=== PATIENT | female | born 1950 | race Caucasian/White ===

== ENCOUNTER → 2016-08-12 | Outpatient (CLI) | payer BC ==
[~2016-08-12] MED LIST: AGM875 PO; ALL180 PO; BNC/20125 PO; CLR/5 PO; DILT-117 PO; EZET10TA41 PO
[2016-08-12 11:31] LABS: BASO % 0.7 %; BASO ABS # 0.05 K/uL (0-0.2); COMPLETE YES; EOS % 2.8 %; HEMATOCRIT 41.6 % (37-47); IG% 0.3 %; LYMPH % 33.9 %; LYMPH ABS # 2.52 K/uL (1.2-3.4); MEAN CELL VOLUME 90.6 fL (80-100); MEAN CORPUSCULAR HEMOGLOBIN 30.7 pg (25-34); MEAN CORPUSCULAR HGB CONC 33.9 g/dl (32-36); MEAN PLATELET VOLUME 8.8 fL (7.4-10.4); MONO % 8.2 %; NEUT % 54.1 %; PLATELET COUNT 215 K/uL (130-400); RED BLOOD COUNT 4.59 M/uL (4.2-5.4); WHITE BLOOD COUNT 7.43 K/uL (4.8-10.8)
[2016-08-12 12:58] LABS: ALT/SGPT 42 U/L (12-78); BLOOD UREA NITROGEN 26 mg/dl (7-18); BUN/CREATININE RATIO 27.7 (10-20); CALCIUM 9.5 mg/dl (8.5-10.1); CARBON DIOXIDE 28 mmol/L (21-32); CHLORIDE 105 mmol/L (98-107); CHOLESTEROL 139 mg/dl (0-200); CREATININE 0.92 mg/dl (0.60-1.20); GLUCOSE 93 mg/dl (70-99); POTASSIUM 3.5 mmol/L (3.5-5.1); SODIUM 143 mmol/L (136-145); TRIGLYCERIDES 101 mg/dl (0-150); VERY LOW DENSITY LIPOPROT CALC 20 mg/dl
[2016-08-12 13:14] LABS: ALB/GLOB RATIO 1.2 (0.9-2); ALKALINE PHOSPHATASE 43 U/L (45-117); AST/SGOT 27 U/L (15-37); CHOLESTEROL/HDL RATIO 2.3; HDL CHOLESTEROL 61 mg/dl; LDL CHOLESTEROL CALCULATED 58 mg/dl
== END | disposition home or self-care (01) ==
LOC: C.LAB1850 10:31
PROVIDERS: ATTEND Internal Medicine
DX: Z11.59 Encounter for screening for other viral diseases (principal); E55.9 Vitamin D deficiency, unspecified; E78.5 Hyperlipidemia, unspecified; I10 Essential (primary) hypertension

== ENCOUNTER → 2017-01-25 | Day surgery (SDC) | payer BC ==
[2017-01-11 11:35] VITALS: Ht 162.6 cm; Wt 81.8 kg
[~2017-01-25] VITALS: Ht 162.6 cm; Wt 81.8 kg
[~2017-01-25] MED LIST changes: +500ML BSS 0.3ML EPI 1:1000PF IRRIG ONE; +ACETAMINOPHEN 325 MG TAB PO PRN; -AGM875 PO; -ALL180 PO; +AMVISC PLUS 0.8ML SYRINGE INT OCU ONE; +ATROPINE SULFATE 0.1 MG/ML 5ML SYR IV PRN; +AcetaZOLAMIDE 250 MG TAB PO SCH; +BETAXOLOL HCL 0.25% OP SUSP PER DROP CHARGE OPR SCH; +BRIMONIDINE TART 0.2% OP SOLN PER DROP CHARGE ONE; +BSS FLUSH ONE; +ENDOCOAT 0.85ML SYRINGE INT OCU ONE; +EpHEDrine SULFATE INJ 50 MG/ML AMP IV PRN; +EpINEphrine INJ 1MG/ML AMP 1 MG/ML AMP ONE; +LACTATED RINGER'S 1000ML 500 ML IV SCH; +LIDOCAINE 4% OP SOLN DROP CHARGE ONE; +LIDOCAINE 4% OP SOLN DROP CHARGE OPR SCH; +LIDOCAINE HCL 1% MPF 2 ML VIAL ONE; +MIDAZOLAM HCL 1 MG/ML 2ML VIAL ONE; +MIX: 4ML BSS 1ML EPI 1:1000 PF INSTIL ONE; +MOXIFLOXACIN OPH SOLN PER DROP CHARGE ONE; +OCUCOAT 1 ML SOLN IO ONE; +POVIDONE-IODINE OP SOLN 30 ML BTL ONE; +PROPARACAINE 0.5% OP SOLN PER DROP CHARGE OPR SCH; +TOBRAMYCIN/DEXAMETHASONE OPH OINT PER APPLN CHARGE ONE
[2017-01-25] MEDS: PHENYLEPHRINE HCL 2.5% OP SOLN PER DROP CHARGE OPR SCH ×2 (09:15→09:20)
--- NOTE | 2017-01-25 09:15 | History & Physical Bridge - [place] ---
H&P Re-Evaluation Bridge Note: I have examined the patient, reviewed the History & Physical and in the interval since the performance of the History & Physical I have noted the following changes of clinical significance: No changes noted
[2017-01-25] MEDS: TROPICAMIDE 1% OP SOLN PER DROP CHARGE OPR SCH ×2 (09:16→09:21)
[2017-01-25] MEDS: CYCLOPENTOLATE HCL 1% OP SOLN PER DROP CHARGE OPR SCH ×2 (09:17→09:22)
[2017-01-25] MEDS: MOXIFLOXACIN OPH SOLN PER DROP CHARGE OPR SCH ×2 (09:18→09:28)
--- NOTE | 2017-01-25 10:31 | Discharge Instructions-SurgCtr ---
Discharge Instructions Date of Service Jan 25, 2017. Visit Reason for Visit: Right Cataract Discharge Discharge Diagnosis / Problem: lens implant right eye Discharge Goals Goal(s): Improve function Activity Recommendations Activity Limitations: resume your previous activity Lifting Limitations: no more than 10 pounds Exercise/Sports Limitations: gradually increase as tolerated May Resume Sexual Activity: when tolerated Shower/Bathe: tomorrow Driving or Machine Use: resume 1 day after discharge Anesthesia . Post Anesthesia Instructions: If you have had General Anesthesia or IV Sedation: * Do not drive today. * Resume driving when surgeon permits. * Do not make important decisions or sign legal documents today. * Call surgeon for: 1. Temperature elevations greater than 101 degrees F. 2. Uncontrollable pain. 3. Excessive bleeding. 4. Persistent nausea and vomiting. 5. Medication intolerance (nausea, vomiting or rash). * For nausea and vomiting use only clear liquids such as: tea, soda, bouillon until nausea subsides, then gradually increase diet as tolerated. * If you have any concerns or questions, call your surgeon's office. If physician is unavailable and it is an emergency, call 911 or go to the nearest emergency room. . Instructions / Follow-Up Instructions / Follow-Up ACTIVITY RECOMMENDATIONS: * Light activities. * Mild irritation and blurred vision are common for the first few days. * You may walk outside, read, watch television. * Redness around the white part of the eye is common. MEDICATIONS: Resume previous medications unless instructed otherwise by your surgeon. * Take white Diamox (Acetazolamide) tablet at 1 pm today. Start all eye drops at 1 pm today: * Eye drops (today and tomorrow): Durezol - one drop in operative eye every 3 hours while awake Ofloxacin - one drop in operative eye every 3 hours while awake SPECIAL CARE INSTRUCTIONS: * Tape plastic shield over eye to sleep at night. Call your doctor at with any concerns or problems. FOLLOW UP VISIT: Follow-up with Dr Sargent at [place] office as scheduled. Diet Recommendations Home Diet: no limitations Procedures Procedures Performed: cataract extraction with lens implant Pending Studies Studies pending at discharge: no Medical Emergencies . Who to Call and When: Medical Emergencies: If at any time you feel your situation is an emergency, please call 911 immediately. . Non-Emergent Contact Non-Emergency issues call your: Scientologist Call Non-Emergent contact if: your pain is not controlled [phone] . . "Provider Documentation" section prepared by Garry Sargent. .
--- NOTE | 2017-01-25 10:33 | [facility] Operative Report ---
Operative Report Date of Service Jan 25, 2017. Operative Report 1. PREOPERATIVE DIAGNOSIS: Senile Posterior Subcapsular cataract, right eye. 2. POSTOPERATIVE DIAGNOSIS: Senile Posterior Subcapsular cataract, right eye. 3. PROCEDURE: Phacoemulsification of right cataract with posterior chamber lens implant, type Bausch [employer] Lomb, model MI60L, power +23.5 diopters. ANESTHESIA: Local standby. SURGEON: Dr. Sargent. COMPLICATIONS: None. OPERATING TIME: 10 minutes. 4. OPERATION AND FINDINGS: DESCRIPTION OF PROCEDURE: The right pupil was dilated. The anesthetic was administered using a topical technique. The right eye was prepped and draped. A speculum was placed. A clear corneal incision was formed. The chamber was filled with Amvisc Plus and Endocoat. Epinephrine solution was used. A paracentesis was placed. A capsulorrhexis was performed. The nucleus was hydrodissected. The lens was removed with phacoemulsification. Time was 3.37 seconds. The aspiration unit was used to remove the cortex. The capsule was filled with Amvisc Plus. The lens implant was folded and placed into the capsule. The incision was hydrated. The Amvisc was aspirated. The wound was secure. The chamber was deep. The pupil was round. Brimonidine, TobraDex ointment and Vigamox solution were placed. The speculum was removed. The patient was returned to the Recovery Room in stable condition. I attest to the content of the Intraoperative Record and any orders documented therein. Any exceptions are noted below. The scribe's documentation has been prepared in my presence, under my direction and personally reviewed by me in its entirety. I confirm that the note above accurately reflects all work, treatment, procedures, and medical decision making performed by me. I personally scribed for Garry Sargent M.D. ([email or web address]) on 01/25/17 at 10:32. Electronically submitted by Aury CARROLL).
[2017-01-25 10:37] VITALS: TEMP 36.6
--- NOTE | 2017-01-25 10:50 | Anesthesia Progress Nt - [facility] ---
Anesthesia Post Op Note Date & Time Jan 25, 2017 at 10:50 Vital Signs Pain Intensity: 0 Vital Signs Past 12 Hours Date Time Temp Pulse Resp B/P (MAP) Pulse Ox O2 Delivery O2 Flow Rate FiO2 01/25/17 10:37 36.6 62 16 125/84 (98) 94 Room Air 01/25/17 09:06 37 64 16 122/76 (91) 94 Room Air Notes Mental Status: alert / awake / arousable, participated in evaluation Pt Amnestic to Procedure: Yes Nausea / Vomiting: adequately controlled Pain: adequately controlled Airway Patency, RR, SpO2: stable & adequate BP & HR: stable & adequate Hydration State: stable & adequate Anesthetic Complications: no major complications apparent
[2017-01-25 10:56] VITALS: BP 108/66; PULSE 63; O2SAT 95
== END | disposition home or self-care (01) ==
LOC: X.SURG 08:23
PROVIDERS: ATTEND Specialist
DX: H25.11 Age-related nuclear cataract, right eye (principal); I10 Essential (primary) hypertension; Z79.899 Other long term (current) drug therapy

== ENCOUNTER → 2017-02-08 | Day surgery (SDC) | payer BC ==
[2017-02-06 09:59] VITALS: Ht 162.6 cm; Wt 81.8 kg
[~2017-02-08] VITALS: Ht 162.6 cm; Wt 81.8 kg
[~2017-02-08] MED LIST changes: +BETAXOLOL HCL 0.25% OP SUSP PER DROP CHARGE OPL SCH; -BETAXOLOL HCL 0.25% OP SUSP PER DROP CHARGE OPR SCH; +LIDOCAINE 4% OP SOLN DROP CHARGE OPL SCH; -LIDOCAINE 4% OP SOLN DROP CHARGE OPR SCH; +PROPARACAINE 0.5% OP SOLN PER DROP CHARGE OPL SCH; -PROPARACAINE 0.5% OP SOLN PER DROP CHARGE OPR SCH
[2017-02-08] MEDS: PHENYLEPHRINE HCL 2.5% OP SOLN PER DROP CHARGE OPL SCH ×2 (09:37→09:42)
[2017-02-08] MEDS: TROPICAMIDE 1% OP SOLN PER DROP CHARGE OPL SCH ×2 (09:38→09:43)
[2017-02-08] MEDS: CYCLOPENTOLATE HCL 1% OP SOLN PER DROP CHARGE OPL SCH ×2 (09:39→09:44)
[2017-02-08] MEDS: MOXIFLOXACIN OPH SOLN PER DROP CHARGE OPL SCH ×2 (09:40→09:51)
--- NOTE | 2017-02-08 10:40 | Discharge Instructions-SurgCtr ---
Discharge Instructions Date of Service Feb 08, 2017. Visit Reason for Visit: Cataract Left Eye Discharge Discharge Diagnosis / Problem: lens implant left eye Discharge Goals Goal(s): Improve function Activity Recommendations Activity Limitations: resume your previous activity Lifting Limitations: no more than 10 pounds Exercise/Sports Limitations: gradually increase as tolerated May Resume Sexual Activity: when tolerated Shower/Bathe: tomorrow Driving or Machine Use: resume 1 day after discharge Anesthesia . Post Anesthesia Instructions: If you have had General Anesthesia or IV Sedation: * Do not drive today. * Resume driving when surgeon permits. * Do not make important decisions or sign legal documents today. * Call surgeon for: 1. Temperature elevations greater than 101 degrees F. 2. Uncontrollable pain. 3. Excessive bleeding. 4. Persistent nausea and vomiting. 5. Medication intolerance (nausea, vomiting or rash). * For nausea and vomiting use only clear liquids such as: tea, soda, bouillon until nausea subsides, then gradually increase diet as tolerated. * If you have any concerns or questions, call your surgeon's office. If physician is unavailable and it is an emergency, call 911 or go to the nearest emergency room. . Instructions / Follow-Up Instructions / Follow-Up ACTIVITY RECOMMENDATIONS: * Light activities. * Mild irritation and blurred vision are common for the first few days. * You may walk outside, read, watch television. * Redness around the white part of the eye is common. MEDICATIONS: Resume previous medications unless instructed otherwise by your surgeon. * Take white Diamox (Acetazolamide) tablet at 1 pm today. Start all eye drops at 1 pm today: * Eye drops (today and tomorrow): Prednisone - one drop in operative eye every 3 hours while awake Ofloxacin - one drop in operative eye every 3 hours while awake SPECIAL CARE INSTRUCTIONS: * Tape plastic shield over eye to sleep at night. Call your doctor at with any concerns or problems. FOLLOW UP VISIT: Follow-up with Dr Sargent at [place] office as scheduled. Diet Recommendations Home Diet: no limitations Procedures Procedures Performed: cataract extraction with lens implant Pending Studies Studies pending at discharge: no Medical Emergencies . Who to Call and When: Medical Emergencies: If at any time you feel your situation is an emergency, please call 911 immediately. . Non-Emergent Contact Non-Emergency issues call your: Parts Sales Advisor Call Non-Emergent contact if: your pain is not controlled [phone] . . "Provider Documentation" section prepared by Garry Sargent. .
--- NOTE | 2017-02-08 10:42 | [facility] Operative Report ---
Operative Report Date of Service Feb 08, 2017. Operative Report 1. PREOPERATIVE DIAGNOSIS: Senile Posterior Subcapsular Cataract, left eye. 2. POSTOPERATIVE DIAGNOSIS: Senile Posterior Subcapsular Cataract, left eye. 3. PROCEDURE: Phacoemulsification of left cataract with posterior chamber lens implant, type Bausch [employer] Lomb, model MI60L, power +23.5 diopters. ANESTHESIA: Local standby. SURGEON: Dr. Sargent. COMPLICATIONS: None. OPERATING TIME: 10 minutes. 4. OPERATION AND FINDINGS: DESCRIPTION OF PROCEDURE: The left pupil was dilated. The anesthetic was administered using a topical technique. The left eye was prepped and draped. A speculum was placed. A clear corneal incision was formed. The chamber was filled with Amvisc Plus and Endocoat. Epinephrine solution was used. A paracentesis was placed. A capsulorrhexis was performed. The nucleus was hydrodissected. The lens was removed with phacoemulsification. Time was 2.83 seconds. The aspiration unit was used to remove the cortex. The capsule was filled with Amvisc Plus. The lens implant was folded and placed into the capsule. The incision was hydrated. The Amvisc was aspirated. The wound was secure. The chamber was deep. The pupil was round. Brimonidine, TobraDex ointment and Vigamox solution were placed. The speculum was removed. The patient was returned to the Recovery Room in stable condition. I attest to the content of the Intraoperative Record and any orders documented therein. Any exceptions are noted below. The scribe's documentation has been prepared in my presence, under my direction and personally reviewed by me in its entirety. I confirm that the note above accurately reflects all work, treatment, procedures, and medical decision making performed by me. I personally scribed for Garry Sargent M.D. ([email or web address]) on 02/08/17 at 10:42. Electronically submitted by Aury CARROLL).
[2017-02-08 10:45] VITALS: TEMP 36.5
--- NOTE | 2017-02-08 10:59 | Anesthesia Progress Nt - [facility] ---
Anesthesia Post Op Note Date & Time Feb 08, 2017 at 10:59 Vital Signs Pain Intensity: 0 Vital Signs Past 12 Hours Date Time Temp Pulse Resp B/P (MAP) Pulse Ox O2 Delivery O2 Flow Rate FiO2 02/08/17 10:45 36.5 60 18 104/62 (76) 96 Room Air 02/08/17 09:25 37.0 64 16 138/83 (101) 95 Room Air Notes Mental Status: alert / awake / arousable, participated in evaluation Pt Amnestic to Procedure: Yes Nausea / Vomiting: adequately controlled Pain: adequately controlled Airway Patency, RR, SpO2: stable & adequate BP & HR: stable & adequate Hydration State: stable & adequate Anesthetic Complications: no major complications apparent
[2017-02-08 11:04] VITALS: BP 113/58; PULSE 57; O2SAT 95
== END | disposition home or self-care (01) ==
LOC: X.SURG 08:54
PROVIDERS: ATTEND Specialist
DX: H26.8 Other specified cataract (principal); I10 Essential (primary) hypertension; Z98.890 Other specified postprocedural states; Z98.41 Cataract extraction status, right eye; Z90.89 Acquired absence of other organs

== ENCOUNTER → 2017-03-03 | Outpatient (CLI) | payer BC ==
[~2017-03-03] MED LIST changes: -500ML BSS 0.3ML EPI 1:1000PF IRRIG ONE; -ACETAMINOPHEN 325 MG TAB PO PRN; -AMVISC PLUS 0.8ML SYRINGE INT OCU ONE; -ATROPINE SULFATE 0.1 MG/ML 5ML SYR IV PRN; -AcetaZOLAMIDE 250 MG TAB PO SCH; -BETAXOLOL HCL 0.25% OP SUSP PER DROP CHARGE OPL SCH; -BRIMONIDINE TART 0.2% OP SOLN PER DROP CHARGE ONE; -BSS FLUSH ONE; -ENDOCOAT 0.85ML SYRINGE INT OCU ONE; -EpHEDrine SULFATE INJ 50 MG/ML AMP IV PRN; -EpINEphrine INJ 1MG/ML AMP 1 MG/ML AMP ONE; -LACTATED RINGER'S 1000ML 500 ML IV SCH; -LIDOCAINE 4% OP SOLN DROP CHARGE ONE; -LIDOCAINE 4% OP SOLN DROP CHARGE OPL SCH; -LIDOCAINE HCL 1% MPF 2 ML VIAL ONE; -MIDAZOLAM HCL 1 MG/ML 2ML VIAL ONE; -MIX: 4ML BSS 1ML EPI 1:1000 PF INSTIL ONE; -MOXIFLOXACIN OPH SOLN PER DROP CHARGE ONE; -OCUCOAT 1 ML SOLN IO ONE; -POVIDONE-IODINE OP SOLN 30 ML BTL ONE; -PROPARACAINE 0.5% OP SOLN PER DROP CHARGE OPL SCH; -TOBRAMYCIN/DEXAMETHASONE OPH OINT PER APPLN CHARGE ONE
--- NOTE | 2017-03-03 12:56 | MAMMOGRAPHY REPORT ---
BILATERAL DIGITAL SCREENING MAMMOGRAM WITH CAD: 03/03/2017 CLINICAL HISTORY: Routine screening. Patient has no complaints. TECHNIQUE: Current study was also evaluated with a Computer Aided Detection (CAD) system. Bilateral CC and MLO views were obtained. COMPARISON: Comparison is made to exams dated: 03/01/2016 mammogram, 02/26/2015 mammogram, 01/06/2014 ma mmogram, 01/03/2013 mammogram, 12/30/2011 mammogram, and 12/27/2010 mammogram - [facility] nter. BREAST COMPOSITION: There are scattered areas of fibroglandular density in both breasts. FINDINGS: No suspicious masses, calcifications, or areas of architectural distortion are noted in ei ther breast. There has been no significant interval change compared to prior exams. Bilateral superi or breast asymmetries are stable compared to multiple prior exams. Bilateral benign-appearing calcif ications are also stable. Linear scar markers denote scars on bilateral breasts. IMPRESSION: ACR BI-RADS CATEGORY 2: BENIGN There is no mammographic evidence of malignancy. A 1 year screening mammogram is recommended. The pa tient will receive written notification of the results. Approximately 10% of breast cancers are not detected with mammography. A negative mammographic report should not delay biopsy if a clinically suggestive mass is present. Terri Nava M.D. /:03/03/2017 12:48:34 Road Engineer Freight: Tavia Olvera, [facility] letter sent: Normal 1/2 BI-RADS Code: ACR BI-RADS Category 2: Benign
== END | disposition home or self-care (01) ==
LOC: C.MAMM 12:19
PROVIDERS: ATTEND Internal Medicine
DX: Z12.31 Encounter for screening mammogram for malignant neoplasm of breast (principal)

== ENCOUNTER → 2018-02-22 | Outpatient (CLI) | payer BC ==
--- NOTE | 2018-02-22 10:58 | DIAGNOSTIC IMAGING REPORT ---
ABDOMEN COMPLETE (US) CLINICAL HISTORY: 68 years-old Female presenting with R10.812 Abdominal left upper quadrant tenderness02/22/18 @ [facility],. TECHNIQUE: Real-time grayscale and limited color Doppler ultrasound imaging of the abdomen was performed. COMPARISON: None. FINDINGS: Pancreas: Visualized portions of the pancreatic head and body normal. Liver: Moderately hyperechogenic parenchyma with partial obscuration of the right hemidiaphragm, likely indicating moderate steatosis. The liver measures 14.5 cm in maximal sagittal dimension. 2.7 cm cyst in the left hepatic lobe. Main portal vein patent with normal directional flow. Biliary: No intrahepatic biliary ductal dilatation. Common bile duct measures up to 6 mm in diameter. Gallbladder: Gallbladder contains a 2.9 cm calculus. No abnormal distention, wall thickening, or pericholecystic fluid or inflammatory change. Sonographic Herrera's sign negative. Spleen: Normal in echogenicity and size, measuring 8.5 cm in length. Kidneys: Exophytic cyst measuring 1 cm arising from the left kidney. Right kidney measures 11.4 cm, and left kidney measures 11.8 cm. Mild left pelvocaliectasis. No right hydronephrosis. Vasculature: Visualized portions of the abdominal aorta normal. IVC not well seen. Ascites: None. IMPRESSION: 1. Mild left pelvocaliectasis. It is difficult to exclude mild hydronephrosis. 2. Hepatic steatosis. Correlate with liver function tests to exclude steatohepatitis as a cause for abdominal pain. 3. Cholelithiasis. No cholecystitis. Electronically signed by: Harman Redmond M.D. 02/22/2018 10:57 AM Dictated Date/Time: 02/22/2018 10:54 AM
== END | disposition home or self-care (01) ==
LOC: C.ULTR 10:08
PROVIDERS: ATTEND Internal Medicine
DX: N73.8 Other specified female pelvic inflammatory diseases (principal); K76.0 Fatty (change of) liver, not elsewhere classified; K80.20 Calculus of gallbladder without cholecystitis without obstruction

== ENCOUNTER → 2018-02-26 | Outpatient (CLI) | payer BC ==
--- NOTE | 2018-02-26 10:41 | DIAGNOSTIC IMAGING REPORT ---
EXAMINATION: RENAL ULTRASOUND CLINICAL HISTORY: R10.812 Abdominal left upper quadrant tenderness R93.422 abnormal prior ultrasound with left renal pelvocaliectasis COMPARISON STUDY: 02/22/2018 FINDINGS: The right kidney measures 11.5 cm.. The left kidney measures 11.3 cm.. There is minor fullness of the left renal collecting system, similar to the prior study. There is an 11 mm echogenic cortical lesion within the midpole the right kidney. There is a 9 mm mid pole left renal cyst. There is a 10 mm echogenic cortical lesion within the lower pole the left kidney. No bladder abnormalities are visualized. Bilateral ureteral jets were visualized. IMPRESSION : 1. Stable mild fullness left renal collecting system. Significant obstruction is not felt to be present as bilateral ureteral jets were visualized 2. 11 mm echogenic cortical lesion within the midpole the right kidney. 10 mm echogenic cortical lesion within the lower pole the left kidney. These lesions are consistent with although not specific for angiomyolipomas. If further evaluation is desired, a dedicated renal CT scan would be suggested. Electronically signed by: Shashi Hamm M.D. 02/26/2018 10:40 AM Dictated Date/Time: 02/26/2018 10:35 AM
== END | disposition home or self-care (01) ==
LOC: C.ULTRBC 09:32
PROVIDERS: ATTEND Internal Medicine
DX: R10.812 Left upper quadrant abdominal tenderness (principal); R93.422 Abnormal radiologic findings on diagnostic imaging of left kidney

== ENCOUNTER → 2018-03-06 | Outpatient (CLI) | payer BC ==
--- NOTE | 2018-03-06 15:21 | MAMMOGRAPHY REPORT ---
BILATERAL DIGITAL SCREENING MAMMOGRAM TOMOSYNTHESIS WITH CAD: 03/06/2018 CLINICAL HISTORY: Routine screening. Patient has no complaints. TECHNIQUE: The study was acquired using full field digital technology and interpreted from soft copy. Breast tomosynthesis in addition to standard 2D mammography was performed. Current study was also ev aluated with a Computer Aided Detection (CAD) system. COMPARISON: Comparison is made to exams dated: 03/03/2017 mammogram, 03/01/2016 mammogram, 02/26/2015 m ammogram, 01/06/2014 mammogram, 01/03/2013 mammogram, and 12/30/2011 mammogram - [facility] nter. BREAST COMPOSITION: There are scattered areas of fibroglandular density in both breasts. FINDINGS: There is stable focal asymmetry in the upper outer posterior right breast, and a stable foc al asymmetry in the upper outer posterior left breast. Stable scattered and grouped punctate microca lcifications bilaterally. No new suspicious mass, architectural distortion or cluster of microcalcifi cations is seen. IMPRESSION: ACR BI-RADS CATEGORY 1: NEGATIVE There is no mammographic evidence of malignancy. A 1 year screening mammogram is recommended.( 019) The patient will receive written notification of the results. Some breast cancers are not detected with mammography. A negative mammographic report should not ben y biopsy if a clinically suggestive mass is present. Christi Godinez M.D. ay/:03/06/2018 13:58:25 Supervisor [employer] Assembly: Zelda Gutiérrez RT(R)(M), [facility] letter sent: Normal 1/2 BI-RADS Code: ACR BI-RADS Category 1: Negative
== END | disposition home or self-care (01) ==
LOC: C.MAMM 12:00
PROVIDERS: ATTEND Internal Medicine
DX: Z12.31 Encounter for screening mammogram for malignant neoplasm of breast (principal)

== ENCOUNTER → 2018-03-20 | Outpatient (CLI) | payer BC ==
[~2018-03-20] MED LIST changes: +OPTIRAY 320 IV PRN
--- NOTE | 2018-03-20 12:09 | DIAGNOSTIC IMAGING REPORT ---
CT SCAN OF THE ABDOMEN AND PELVIS COMBO RENAL MASS PROTOCOL CLINICAL HISTORY: Follow-up abnormal ultrasound. Left renal lesion. COMPARISON STUDY: Renal ultrasound dated 02/26/2018. TECHNIQUE: Before and following the IV administration of 94 cc of Optiray 320, CT scan of the abdomen and pelvis is performed from the lung bases to the proximal femora. The abdominal CT is performed using the renal mass protocol. Images are reviewed in the axial, sagittal, and coronal planes. IV contrast was administered without complication. A dose lowering technique was utilized adhering to the principles of ALARA. CT DOSE: 1996.29 mGycm FINDINGS: Lung bases: The heart is normal in size and without pericardial effusion. A calcified granuloma is noted at the left lung base. There is mild bibasilar scarring/atelectasis. No airspace consolidation or pleural effusion is seen. Liver: The contrast-enhanced liver is normal in size, contour, and attenuation. There is no intrahepatic biliary ductal dilatation. The hepatic veins and portal veins are patent. 2 hepatic cysts are identified and measure up to 2.5 cm. Gallbladder: There is a large calcified gallstone. The gallbladder is otherwise normal in appearance. Spleen: Normal in size and attenuation. Pancreas: Unremarkable. Adrenal glands: Unremarkable. Kidneys: There are no renal calculi identified on the unenhanced series. The contrast enhanced kidneys are normal in size and without hydronephrosis. The kidneys enhance and excrete symmetrically. There is a 6 mm fat attenuation lesion in the interpolar right kidney seen on unenhanced image #139. This is consistent with a small angiomyolipoma. A similar-appearing 7 mm angiomyolipoma is seen in the lower pole of left kidney on image #172. A 12 mm exophytic cyst is noted in the interpolar left kidney. Additional subcentimeter cortical hypodensities also likely represent cysts but are too small for definitive characterization. There is no enhancing renal cortical mass. No evidence of urothelial lesion is seen within the renal pelvis bilaterally or along the course of the proximal ureters. Abdominal vasculature: The abdominal aorta is normal in course and caliber noting advanced atherosclerotic calcification. Bowel: There is mild colonic diverticulosis without CT evidence of acute diverticulitis. No bowel obstruction is seen. The appendix is not identified. Peritoneum: There is no intraperitoneal free air or abdominal ascites. Lymphadenopathy: None. Pelvic viscera: The bladder, uterus, and adnexa are normal as visualized. Numerous phleboliths are observed in the pelvis. Skeletal structures: The skeletal structures are osteopenic. There is mild lumbosacral spondylosis. Sclerotic change is noted at the symphysis pubis. No lytic or blastic lesions are seen. IMPRESSION: 1. 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 These corresponds to the small lesions seen by ultrasound. 2. No enhancing cortical mass is identified. 3. No renal calculi are seen. 4. Cholelithiasis. 5. Mild colonic diverticulosis without CT evidence of acute diverticulitis. 6. Additional findings as above. Electronically signed by: Chuck Drummond M.D. 03/20/2018 12:07 PM Dictated Date/Time: 03/20/2018 11:52 AM
== END | disposition home or self-care (01) ==
LOC: C.CTS 10:51
PROVIDERS: ATTEND Urology
DX: D17.71 Benign lipomatous neoplasm of kidney (principal); K80.20 Calculus of gallbladder without cholecystitis without obstruction

== ENCOUNTER 2022-04-10 11:35 | Inpatient (IN) ==
[2022-04-10] MEDS ORDERED: SODIUM CHLORIDE 0.9% 1000ML 1,000 ML IV ONE (11:55)
[2022-04-10 12:06] LABS: Basophils # (auto) 0.03 K/uL (0-0.2); Basophils % (auto) 0.2 %; Eosinophils # (auto) 0.08 K/uL (0-0.50); Eosinophils % (auto) 0.6 %; Hematocrit (blood only) 42.4 % (34.1-44.9); Hemoglobin 14.1 g/dl (12.0-16.0); Immature Granulocytes # (auto) 0.08 K/uL (0.00-0.02); Immature Granulocytes % (auto) 0.6 %; Lymphocytes # (auto) 3.26 K/uL (1.2-3.4); Lymphocytes % (auto) 22.9 %; Mean Corpuscular Hemoglobin 30.9 pg (25.0-34.0); Mean Corpuscular Hgb Conc 33.3 g/dL (32.0-36.0); Mean Corpuscular Volume 92.8 fL (80.0-100.0); Mean Platelet Volume 8.7 fL (9.4-12.3); Monocytes # (auto) 1.27 K/uL (0.24-0.82); Monocytes % (auto) 8.9 %; Neutrophils % (auto) 66.8 %; Platelet Count 221 K/uL (130-400); RDW Coefficient of Variation 14.1 % (11.5-14.5); RDW Standard Deviation 47.4 fL (36.4-46.3); Red Blood Count 4.57 M/uL (3.93-5.22); White Blood Count 14.22 K/ul (4.8-10.8)
--- NOTE | 2022-04-10 12:16 | XRay Report ---
XR chest 1V portable CLINICAL HISTORY: Chest Pain TECHNIQUE: Single frontal radiograph of the chest was obtained. Comparison: Comparison is made to rib series 02/04/2021 FINDINGS: No lines and tubes are seen. The cardiomediastinal silhouette is normal. Lungs are underinflated and there is atelectasis in the lower lobes. No evidence of pleural effusion or pneumothorax. IMPRESSION: No acute chest disease. ACT 112: Negative or not required by law. Electronically signed by: Kam Rothman M.D. 04/10/2022 12:15 PM
[2022-04-10] MEDS ORDERED: ACETAMINOPHEN 1,000 MG/100 ML VIAL IV STA (12:27)
[2022-04-10] MEDS ORDERED: MoRPHine SULFATE 10 MG/ML CARP/VIAL IV STA (12:27)
[2022-04-10] MEDS ORDERED: ONDANSETRON INJ 2 MG/ML 2 ML VIAL IV STA (12:27)
[2022-04-10 12:28] LABS: Alanine Aminotransferase 20 U/L (7-52); Albumin Globulin Ratio 1.3 (0.9-2); Albumin Level 4.1 gm/dl (3.4-5.0); Alkaline Phosphatase 36 U/L (34-104); Anion Gap 10 (3-11); Aspartate Aminotransferase 13 U/L (13-39); BUN Creatinine Ratio 23.5 (10-20); Bilirubin,Total 0.6 mg/dl (0.2-1.0); Blood Urea Nitrogen 20 mg/dl (6-23); Calcium 10.1 mg/dl (8.5-10.1); Carbon Dioxide 26 mmol/L (21-32); Chloride 102 mmol/L (98-107); Est GFR (African American) 78.8 ml/min; Globulin 3.1 gm/dl (2.5-4.0); Glucose 144 mg/dl (70-99(Fasting)); Lipase 20 U/L (11-82); Magnesium 1.7 mg/dl (1.7-2.4); Phosphorus 2.5 mg/dl (2.5-4.9); Potassium 3.3 mmol/L (3.5-5.1); Sodium 138 mmol/L (136-145); Total Protein 7.2 gm/dl (6.0-8.3)
[2022-04-10 12:33] LABS: Troponin I High Sensitivity 7.3 pg/ml (0-14)
[2022-04-10] MEDS ORDERED: OPTIRAY 300 500mL IV ONE (13:01)
--- NOTE | 2022-04-10 13:35 | CT Scan Report ---
CT angio chest PE protocol CLINICAL HISTORY: right lower cp, pleurisy, r/o PE TECHNIQUE: Multidetector row helical CT of the chest was performed with angiographic protocol. Nascimento l and sagittal reformations were obtained. Coronal and sagittal MIPS were obtained from the axial saeed a set and were submitted for review. Automated dose lowering techniques and/or adjustment according to patient size were utilized for this exam. CT DOSE: 1134.74 mGy.cm Comparison: None available at the time of this dictation. FINDINGS: Lungs and pleura: Atelectasis versus scarring is seen in the dependent portions of the lungs. Heart and pericardium: Heart size is normal. No pericardial effusion. Vessels: No evidence of pulmonary embolism. Mediastinum and kasie: Unremarkable. Chest wall and lower neck: Subcentimeter thyroid nodules are noted which do not require follow-up by ACR criteria. Abdomen: A cyst is noted in the left liver. Bones: Degenerative changes in the thoracic spine. IMPRESSION: 1. No acute abnormality, in particular no evidence of pulmonary embolus. 2. Linear densities in the bilateral lower lungs are favored to represent atelectasis, underlying sc arring cannot be excluded. ACT 112: Negative or not required by law. Electronically signed by: Kam Rothman M.D. 04/10/2022 1:33 PM
--- NOTE | 2022-04-10 13:42 | CT Scan Report ---
CT abd pelvis IV con only CLINICAL HISTORY: RUQ pain, gallstones TECHNIQUE: Helical axial images of the abdomen and pelvis were obtained and displayed. Automated dose lowering techniques and/or adjustment according to patient size were utilized for this exam. This e xam was performed with intravenous contrast. COMPARISON: Comparison is made to CT abdomen pelvis 10/01/2021 FINDINGS: Lower chest: For findings above the diaphragm, please see CT chest performed same day. Liver: Hepatic cysts are seen. Gallbladder and biliary tree: A large gallstone is seen in the dependent portion of the gallbladder. No wall thickening or pericholecystic fluid is seen. No intra- or extrahepatic biliary ductal dilatio n. Pancreas: Unremarkable, no focal lesions. Spleen: Unremarkable. Adrenals: Unremarkable. Kidneys and ureters: Subcentimeter hypodensities are too small to characterize. A tiny cyst in the le ft mid pole is again noted, simple fluid attenuation. Bladder: Unremarkable. Reproductive organs: Unremarkable. Bowel: Diverticulosis is seen without evidence of diverticulitis. Lymph nodes Retroperitoneal: Unremarkable. Pelvic: Unremarkable. Mesenteric: Unremarkable. Peritoneum: Normal. Vessels: Atherosclerotic calcifications are seen. Abdominal wall: Unremarkable. Bones: Unremarkable. IMPRESSION: 1. No acute abnormalities are seen. There is cholelithiasis without evidence of cholecystitis, uncha nged from prior exam. 2. Subcentimeter hypodensities in the kidneys are too small to characterize but may represent angiom yolipomas. 3. A cyst is noted in the midpole of the left kidney corresponding to the hyperdense lesion seen on prior exam. This likely represents a cyst with a resolved hemorrhagic/proteinaceous component. ACT 112: Negative or not required by law. Electronically signed by: Kam Rothman M.D. 04/10/2022 1:40 PM
--- NOTE | 2022-04-10 17:49 | Ultrasound Report ---
US gallbladder CLINICAL HISTORY: RUQ pain TECHNIQUE: Multiple real-time sonographic images of the right upper quadrant were obtained. Comparison: Comparison is made to CT abdomen pelvis 04/10/2022 FINDINGS: The liver is diffusely homogenous with normal contour and echogenicity. There is a cystic area in the left lobe measuring 2.3 x 3.6 x 3.0 cm. No intrahepatic ductal dilatation is seen. A prominent gal lstone is noted. The gallbladder is distended. The wall measures 0.3 cm in diameter. A sonographic Mu rphy's sign was not elicited by the beverage distiller. The common duct measures 0.4 cm in diameter at the level of the hepatic artery. The visualized portions of the pancreas appear normal. The right kidney shows normal echogenicity, cortical thickness and renal contour. The right kidney sh ows no evidence of hydronephrosis or mass. No ascites or free fluid is seen in Veronica's pouch. IMPRESSION: 1. Distended gallbladder without evidence of acute cholecystitis. 2. Left hepatic cyst is again noted. ACT 112: Negative or not required by law. Electronically signed by: Kam Rothman M.D. 04/10/2022 5:47 PM
--- NOTE | 2022-04-10 18:48 | Emergency Department Note ---
Impression & Plan Biliary colic, Cholelithiases, Dyspnea, Hypoxia ED Provider Note NAME: SHERMAN GRISSOM AGE: 72 SEX: F ARRIVES VIA: Walk-In INFORMANT: Patient ED PROVIDER(S): Kenan Bey MD CHIEF COMPLAINT: Abdominal pain PLAN: Disposition: Admit MEDICAL DECISION MAKING: The patient is a pleasant 72-year-old woman who presents to the emergency department accompanied by her for evaluation of acute onset of worsening right lower chest/right upper quadrant abdominal pain where she reports the pain is so severe that she cannot catch her breath. She denies any personal or family history of blood clots. She reports her pain began more mildly last nig ht and then this morning was more severe. She reports she had 2 slices of cheese pizza last night prior to onset of her symptoms. This morning she reports drinking coffee and then having toast with butter which flared her symptoms additionally. She denies any fevers, chills, cough, congestion, ur inary symptoms. On arrival the patient is uncomfortable but no acute distress, afebrile with stable vital signs. She has mild right upper quadrant tenderness without guarding or rebound. I did perform a limited bedside gallbladder ultrasound that demonstrated numerous gallstones without overt pericholecystic fluid. WBC 14K, nonspecific. H/H and platelets within normal limits. Chemistry without metabolic acidosis. Electrolytes and LFTs without significant abnormality. High-sensitivity troponin 7.3, within normal limits. Lipase within normal limits. COVID-19 RNA, MARY test was negative. CT of the chest was performed and was negative for PE. No Infiltrates. Likely atelectasis noted. CT of the abdomen pelvis demonstrates cholelithiasis with distended gallbladder without CT evidence of cholecystitis. A formal gallbladder ultrasound was performed and also demonstrates cholelithiasis without evidence of cholecystitis or ductal dilatation. Reevaluation the patient was feeling improved following treatment with IV fluid hydration, APAP, morphine, Zofran. However, she did report flare of pain when she walked to the bathroom but then this calmed upon resting in her bed. While the patient developed mild hypoxia following treatment with morphine initially, this does persist with O2 saturation dipping down to 88% on room air in the setting of poor inspiratory effort which the patient attributes to continuation of residual pain. Given persistence of her pain she did agree with plan for admission for further evaluation with possible HIDA scan. Case was discussed Taylor Whitmore, [facility] PAC and Dr. Ayala [facility] hospitalist, who will evaluate the patient for admission. Case discussed with Dr. Ko, general surgery on-call. They will be available for inpatient team consultation. Triage Nursing notes reviewed and agree them. Prior medical records reviewed Vital Signs: reviewed and remarkable for no significant abnormalities Differential diagnosis: Appendicitis, testicular torsion, infections, diverticulitis, UTI, obstruction, mesenteric ischemia, aortic pathology, inflammatory bowel disease, renal colic, PUD, pancreatitis, biliary pathology, hernia, volvulus, constipation, as well as other pathologies. ER treatment provided: See below. Diagnostics interpreted by me: ECG: Normal sinus rhythm, 83 bpm, no ectopy, LVH, nonspecific ST abnormality, no overt ST elevation or depression, QTC 404, QRS 88 Cardiac Monitoring: An order for continuous cardiac monitoring was placed and demonstrated Normal sinus rhythm, 83 bpm, no ectopy. Laboratory studies: See below Imaging studies: See below Consultation(s): ЕКАТЕРИНА Bragg PAC and MARTI Capps hospitalist Dr. Ko, general surgery on-call. HPI: The patient is a pleasant 72-year-old woman who presents to the emergency department accompanied by her for evaluation of acute onset of worsening right lower chest/right upper quadrant abdominal pain where she reports the pain is so severe that she cannot catch her breath. She denies any personal or family history of blood clots. She reports her pain began more mildly last night and then this morning was more severe. She reports she had 2 slices of cheese pizza last night prior to onset of her symptoms. This morning she reports drinking coffee and then having toast with butter which flared her symptoms additionally. She denies any fevers, chills, cough, congestion, urinary symptoms. ROS: See above HPI for pertinent positives & negatives. A total of 10 systems reviewed and were otherwise negative. VITALS:See Below PHYSICAL EXAMINATION: GENERAL: Awake, alert, uncomfortable-appearing, in no distress, BMI 30.8. HENT: Normocephalic, atraumatic. Oropharynx with dry mucous membranes and otherwise unremarkable. EYES: Normal conjunctiva. Sclera non-icteric. NECK: Supple. No nuchal rigidity. FROM. No JVD. RESPIRATORY: Clear to auscultation. CARDIAC: Regular rate, normal rhythm. Extremities warm and well perfused. Pulses equal. ABDOMEN: Soft, non-distended. Mild right upper quadrant tenderness without guarding or rebound. RECTAL: Deferred. MUSCULOSKELETAL: Chest examination reveals no tenderness. The back is symmetrical on inspection without obvious abnormality. There is no CVA tenderness to palpation. No joint edema. LOWER EXTREMITIES: Calves are equal size bilaterally and non-tender. No edema. No discoloration. NEURO: Normal sensorium. No sensory or motor deficits noted. SKIN: No rash or jaundice noted. Kenan Bey MD Past Med/Surg History Medical History Abnormal finding on diagnostic imaging of left kidney Abnormal TSH Abnormal TSH Angiomyolipoma of both kidneys Cardiac murmur Cholelithiases Dysuria Feeling tired Hyperlipidemia Hypertension Lichen sclerosus et atrophicus Sensorineural hearing loss (SNHL) of both ears Strain of muscle, fascia and tendon at neck level, initial encounter Tendinopathy Vitamin D deficiency Surgical History History of appendectomy History of bilateral cataract extraction History of colonoscopy History of cryosurgery History of right breast biopsy x3--benign History of wisdom tooth extraction Family History Mother Diabetes Aunt Breast cancer Maternal Brother Diabetes Father Hypertension Other No family history of adverse response to anesthesia Denies family history of Ovarian cancer Prostate cancer Myocardial infarction Colorectal cancer Social History Smoking Status: Never smoker Second Hand Exposure: No; Hx Alcohol Use: Yes Alcohol type: other Hx Substance Use: No Preferred Language: Armenian Communication Ability: Effective Visual Impairment: No Limitations Hearing Ability: Normal Healthcare Administrative Assistant Required: No Beliefs That Will Affect Care: None marital status: Current Living Situation: Spouse current occupational status: retired Feels Safe at Home: Yes Childhood Exposure to Second-Hand Smoke: No Dental Care, Regularly: Yes Physical Activity Frequency: Does not Exercise Seatbelt Use: always Sunscreen Use: Yes Assistive Devices: Glasses Allergies Allergies Allergy/AdvReac Type Severity Reaction Status Date / Time lorazepam AdvReac Unknown CAN'T Verified 04/10/22 16:18 REMEMBER methylprednisolone AdvReac Unknown CAN'T Verified 04/10/22 16:18 [From Medrol] REMEMBER Home Meds Home Medications Medication Instructions Recorded Confirmed cholecalciferol (vitamin D3) 50 2,000 unit PO DAILY 10/01/18 04/10/22 mcg (2,000 unit) capsule (Vitamin D3) Previous Rx's Medication Instructions Recorded tobramycin-dexamethasone 0.3 %-0.1 1 applic ophthalmic (eye) Q8H #3.5 08/27/20 % eye ointment (TobraDex) grams hydrocortisone acetate 25 mg 25 mg NJ DAILY #24 ea 07/29/21 rectal suppository (Anucort-HC) triamcinolone acetonide 0.1 % 1 applic topical BID #80 grams 08/16/21 topical cream oxybutynin chloride 5 mg 5 mg PO DAILY #30 tabs 09/22/21 tablet,extended release 24 hr diclofenac sodium 1 % topical gel 2 g topical QID #100 grams 10/05/21 olmesartan 20 1 tab PO QAM #90 tabs 11/25/21 mg-hydrochlorothiazide 12.5 mg tablet diltiazem HCl 300 mg capsule,24 300 mg PO HS #30 caps 12/06/21 hr,extended release (Taztia XT) ezetimibe 10 mg-simvastatin 40 mg 1 tab PO QDD #30 tabs 12/06/21 tablet clobetasol 0.05 % topical cream 1 applic topical 2XWK #30 grams 02/03/22 pantoprazole 40 mg tablet,delayed 40 mg PO DAILY #90 tabs 02/03/22 release levothyroxine 50 mcg tablet 50 mcg PO DAILY #30 tabs 03/28/22 Results & Data (ED) Vital Signs Vital Signs - 24 hr 04/10/22 11:38 04/10/22 12:08 04/10/22 12:08 Temperature 36.6 C Temperature Source Temporal Artery Scan Pulse Rate 84 Pulse Rate [Left Finger] 77 Respiratory Rate 20 22 Respiratory Effort / Characteristics Non-Labored Respiratory Depth Normal Respiratory Pattern Rapid/Shallow Blood Pressure 142/73 H Blood Pressure [Right Arm] 155/79 H Blood Pressure Mean 96 Blood Pressure Mean [Right Arm] 104 Pulse Oximetry 95 95 Oxygen Delivery Method Room Air Room Air Room Air Oxygen Flow Rate 95 Sepsis Recent Fever Within 48 Hours No Sepsis New/Unexplained Change in Mental Status N/A Sepsis Action Taken by Nursing No Action Required 04/10/22 12:08 04/10/22 14:02 04/10/22 17:09 Temperature Temperature Source Pulse Rate Pulse Rate [Left Finger] 70 79 Respiratory Rate 16 Respiratory Effort / Characteristics Respiratory Depth Respiratory Pattern Blood Pressure Blood Pressure [Right Arm] 160/70 H 135/81 Blood Pressure Mean Blood Pressure Mean [Right Arm] 100 99 Pulse Oximetry 95 92 95 Oxygen Delivery Method Room Air Room Air Nasal Cannula Oxygen Flow Rate 2 Sepsis Recent Fever Within 48 Hours Sepsis New/Unexplained Change in Mental Status Sepsis Action Taken by Nursing 04/10/22 19:32 Temperature Temperature Source Pulse Rate Pulse Rate [Left Finger] 77 Respiratory Rate 18 Respiratory Effort / Characteristics Respiratory Depth Respiratory Pattern Blood Pressure Blood Pressure [Right Arm] 168/73 H Blood Pressure Mean Blood Pressure Mean [Right Arm] 104 Pulse Oximetry 96 Oxygen Delivery Method Nasal Cannula Oxygen Flow Rate 2 Sepsis Recent Fever Within 48 Hours Sepsis New/Unexplained Change in Mental Status Sepsis Action Taken by Nursing Laboratory Data Result diagrams: 04/10/22 11:50 04/10/22 11:50 Lab Results 04/10/22 04/10/22 04/10/22 Range/Units 11:50 11:50 11:50 WBC 14.22 H (4.8-10.8) K/ul RBC 4.57 (3.93-5.22) M/uL Hgb 14.1 (12.0-16.0) g/dl Hct 42.4 (34.1-44.9) % MCV 92.8 (80.0-100.0) fL MCH 30.9 (25.0-34.0) pg MCHC 33.3 (32.0-36.0) g/dL RDW Std Deviation 47.4 H (36.4-46.3) fL RDW Coeff of Cheo 14.1 (11.5-14.5) % Plt Count 221 (130-400) K/uL MPV 8.7 L (9.4-12.3) fL Immature Gran % (Auto) 0.6 % Neut % (Auto) 66.8 % Lymph % (Auto) 22.9 % [place] % (Auto) 8.9 % Eos % (Auto) 0.6 % Baso % (Auto) 0.2 % Neut # (Auto) 9.50 H (1.4-6.5) K/uL Lymph # (Auto) 3.26 (1.2-3.4) K/uL [place] # (Auto) 1.27 H (0.24-0.82) K/uL Eos # (Auto) 0.08 (0-0.50) K/uL Baso # (Auto) 0.03 (0-0.2) K/uL Immature Gran # (Auto) 0.08 H (0.00-0.02) K/uL Sodium 138 (136-145) mmol/L Potassium 3.3 L (3.5-5.1) mmol/L Chloride 102 (98-107) mmol/L Carbon Dioxide 26 (21-32) mmol/L Anion Gap 10 (3-11) BUN 20 (6-23) mg/dl Creatinine 0.85 (0.6-1.2) mg/dl Est Cr Clr Drug Dosing Not Reportable Est GFR ( Amer) 78.8 ml/min Est GFR (Non-Af Amer) 68.0 ml/min BUN/Creatinine Ratio 23.5 H (10-20) Glucose 144 H (70-99(Fasting)) mg/dl Calcium 10.1 (8.5-10.1) mg/dl Phosphorus 2.5 (2.5-4.9) mg/dl Magnesium 1.7 (1.7-2.4) mg/dl Total Bilirubin 0.6 (0.2-1.0) mg/dl Direct Bilirubin 0.1 (0-0.2) mg/dl AST 13 (13-39) U/L ALT 20 (7-52) U/L Alkaline Phosphatase 36 (34-104) U/L Troponin I High Sens 7.3 (0-14) pg/ml Total Protein 7.2 (6.0-8.3) gm/dl Albumin 4.1 (3.4-5.0) gm/dl Globulin 3.1 (2.5-4.0) gm/dl Albumin/Globulin Ratio 1.3 (0.9-2) Lipase 20 (11-82) U/L SARS-CoV-2, RNA, NAAT (NEGATIVE) 04/10/22 Range/Units 12:37 WBC (4.8-10.8) K/ul RBC (3.93-5.22) M/uL Hgb (12.0-16.0) g/dl Hct (34.1-44.9) % MCV (80.0-100.0) fL MCH (25.0-34.0) pg MCHC (32.0-36.0) g/dL RDW Std Deviation (36.4-46.3) fL RDW Coeff of Cheo (11.5-14.5) % Plt Count (130-400) K/uL MPV (9.4-12.3) fL Immature Gran % (Auto) % Neut % (Auto) % Lymph % (Auto) % [place] % (Auto) % Eos % (Auto) % Baso % (Auto) % Neut # (Auto) (1.4-6.5) K/uL Lymph # (Auto) (1.2-3.4) K/uL [place] # (Auto) (0.24-0.82) K/uL Eos # (Auto) (0-0.50) K/uL Baso # (Auto) (0-0.2) K/uL Immature Gran # (Auto) (0.00-0.02) K/uL Sodium (136-145) mmol/L Potassium (3.5-5.1) mmol/L Chloride (98-107) mmol/L Carbon Dioxide (21-32) mmol/L Anion Gap (3-11) BUN (6-23) mg/dl Creatinine (0.6-1.2) mg/dl Est Cr Clr Drug Dosing Est GFR ( Amer) ml/min Est GFR (Non-Af Amer) ml/min BUN/Creatinine Ratio (10-20) Glucose (70-99(Fasting)) mg/dl Calcium (8.5-10.1) mg/dl Phosphorus (2.5-4.9) mg/dl Magnesium (1.7-2.4) mg/dl Total Bilirubin (0.2-1.0) mg/dl Direct Bilirubin (0-0.2) mg/dl AST (13-39) U/L ALT (7-52) U/L Alkaline Phosphatase (34-104) U/L Troponin I High Sens (0-14) pg/ml Total Protein (6.0-8.3) gm/dl Albumin (3.4-5.0) gm/dl Globulin (2.5-4.0) gm/dl Albumin/Globulin Ratio (0.9-2) Lipase (11-82) U/L SARS-CoV-2, RNA, NAAT NEGATIVE (NEGATIVE) Administered Medications Discontinued Medications Sodium Chloride (Nss 1000ml) 1,000 mls @ 999 mls/hr IV .Q1H1M ONE Stop: 04/10/22 12:55 Last Infusion: 04/10/22 13:06 Dose: 0 mls/hr Documented By: Admin: 04/10/22 12:05 Dose: 999 mls/hr Documented By: CODY Acetaminophen (Ofirmev) 1,000 mg in 100 mls @ 400 mls/hr IV NOW STA Stop: 04/10/22 12:41 Last Infusion: 04/10/22 12:49 Dose: 0 mls/hr Documented By: Admin: 04/10/22 12:32 Dose: 400 mls/hr Documented By: CODY Ioversol (Optiray 300 500ml) 112 ml IV ONCE ONE Stop: 04/10/22 13:02 Last Admin: 04/10/22 13:01 Dose: 112 ml Documented By: MURALI Morphine Sulfate (Morphine Sulfate 10 Mg/Ml Carp/Vial) 6 mg IV NOW STA Stop: 04/10/22 12:28 Last Admin: 04/10/22 12:33 Dose: 6 mg Documented By: CODY Ondansetron HCl (Ondansetron Inj 2 Mg/Ml 2 Ml Vial) 4 mg IV NOW STA Stop: 04/10/22 12:28 Last Admin: 04/10/22 12:33 Dose: 4 mg Documented By: CODY Imaging Data Radiologist's Impression: Chest X-Ray 04/10/22 11:56 XR chest 1V portable CLINICAL HISTORY: Chest Pain TECHNIQUE: Single frontal radiograph of the chest was obtained. Comparison: Comparison is made to rib series 02/04/2021 FINDINGS: No lines and tubes are seen. The cardiomediastinal silhouette is normal. Lungs are underinflated and there is atelectasis in the lower lobes. No evidence of pleural effusion or pneumothorax. IMPRESSION: No acute chest disease. ACT 112: Negative or not required by law. Electronically signed by: Kam Rothman M.D. 04/10/2022 12:15 PM Abdomen/Pelvis CT 04/10/22 12:26 CT abd pelvis IV con only CLINICAL HISTORY: RUQ pain, gallstones TECHNIQUE: Helical axial images of the abdomen and pelvis were obtained and displayed. Automated dose lowering techniques and/or adjustment according to patient size were utilized for this exam. This exam was performed with intravenous contrast. COMPARISON: Comparison is made to CT abdomen pelvis 10/01/2021 FINDINGS: Lower chest: For findings above the diaphragm, please see CT chest performed same day. Liver: Hepatic cysts are seen. Gallbladder and biliary tree: A large gallstone is seen in the dependent portion of the gallbladder. No wall thickening or pericholecystic fluid is seen. No intra- or extrahepatic biliary ductal dilation. Pancreas: Unremarkable, no focal lesions. Spleen: Unremarkable. Adrenals: Unremarkable. Kidneys and ureters: Subcentimeter hypodensities are too small to characterize. A tiny cyst in the left mid pole is again noted, simple fluid attenuation. Bladder: Unremarkable. Reproductive organs: Unremarkable. Bowel: Diverticulosis is seen without evidence of diverticulitis. Lymph nodes Retroperitoneal: Unremarkable. Pelvic: Unremarkable. Mesenteric: Unremarkable. Peritoneum: Normal. Vessels: Atherosclerotic calcifications are seen. Abdominal wall: Unremarkable. Bones: Unremarkable. IMPRESSION: 1. No acute abnormalities are seen. There is cholelithiasis without evidence of cholecystitis, unchanged from prior exam. 2. Subcentimeter hypodensities in the kidneys are too small to characterize but may represent angiomyolipomas. 3. A cyst is noted in the midpole of the left kidney corresponding to the hyperdense lesion seen on prior exam. This likely represents a cyst with a resolved hemorrhagic/proteinaceous component. ACT 112: Negative or not required by law. Electronically signed by: Kam Rothman M.D. 04/10/2022 1:40 PM Chest CTA 04/10/22 12:26 CT angio chest PE protocol CLINICAL HISTORY: right lower cp, pleurisy, r/o PE TECHNIQUE: Multidetector row helical CT of the chest was performed with angiographic protocol. Coronal and sagittal reformations were obtained. Coronal and sagittal MIPS were obtained from the axial data set and were submitted for review. Automated dose lowering techniques and/or adjustment according to patient size were utilized for this exam. CT DOSE: 1134.74 mGy.cm Comparison: None available at the time of this dictation. FINDINGS: Lungs and pleura: Atelectasis versus scarring is seen in the dependent portions of the lungs. Heart and pericardium: Heart size is normal. No pericardial effusion. Vessels: No evidence of pulmonary embolism. Mediastinum and kasie: Unremarkable. Chest wall and lower neck: Subcentimeter thyroid nodules are noted which do not require follow-up by ACR criteria. Abdomen: A cyst is noted in the left liver. Bones: Degenerative changes in the thoracic spine. IMPRESSION: 1. No acute abnormality, in particular no evidence of pulmonary embolus. 2. Linear densities in the bilateral lower lungs are favored to represent atelectasis, underlying scarring cannot be excluded. ACT 112: Negative or not required by law. Electronically signed by: Kam Rothman M.D. 04/10/2022 1:33 PM Gallbladder Ultrasound 04/10/22 14:15 US gallbladder CLINICAL HISTORY: RUQ pain TECHNIQUE: Multiple real-time sonographic images of the right upper quadrant were obtained. Comparison: Comparison is made to CT abdomen pelvis 04/10/2022 FINDINGS: The liver is diffusely homogenous with normal contour and echogenicity. There is a cystic area in the left lobe measuring 2.3 x 3.6 x 3.0 cm. No intrahepatic ductal dilatation is seen. A prominent gallstone is noted. The gallbladder is distended. The wall measures 0.3 cm in diameter. A sonographic Herrera's sign was not elicited by the glazier structural glass. The common duct measures 0.4 cm in diameter at the level of the hepatic artery. The visualized portions of the pancreas appear normal. The right kidney shows normal echogenicity, cortical thickness and renal contour. The right kidney shows no evidence of hydronephrosis or mass. No ascites or free fluid is seen in Veronica's pouch. IMPRESSION: 1. Distended gallbladder without evidence of acute cholecystitis. 2. Left hepatic cyst is again noted. ACT 112: Negative or not required by law. Electronically signed by: Kam Rothman M.D. 04/10/2022 5:47 PM Discharge Plan Visit Data Chief Complaint: Shortness of Breath/Dyspnea Stated Complaint: PAINFUL TO TAKE A DEEP BREATH ED Provider: Kenan Bey Discharge Problem: Biliary colic, Cholelithiases, Dyspnea, Hypoxia Patient Disposition: Home - Self-Care Forms Stand Alone Forms: [facility] Emergency Department, Important Visit Information Prescriptions Prescriptions: No Action TobraDex 0.3-0.1 % ointment 1 applic OP Q8H Qty: 3.5 1RF triamcinolone acetonide 0.1 % cream 1 applic topical BID Qty: 80 3RF olmesartan-hydrochlorothiazide 20-12.5 mg tablet 1 tab PO QAM Qty: 90 3RF diltiazem HCl [Taztia XT] 300 mg capsule,extended release 24 hr 300 mg PO HS Qty: 30 5RF ezetimibe-simvastatin 10-40 mg tablet 1 tab PO QDD Qty: 30 5RF levothyroxine 50 mcg tablet 50 mcg PO DAILY Qty: 30 1RF hydrocortisone acetate [Anucort-HC] 25 mg suppository 25 mg [place] DAILY Qty: 24 5RF pantoprazole 40 mg tablet,delayed release (DR/EC) 40 mg PO DAILY Qty: 90 3RF clobetasol 0.05 % cream 1 applic TOPICAL 2XWK Qty: 30 1RF oxybutynin chloride 5 mg tablet extended release 24hr 5 mg PO DAILY Qty: 30 11RF diclofenac sodium 1 % gel 2 g topical QID Qty: 100 2RF Rx Instructions: apply to single elbow, wrist or hand; for hand includes palm/fingers/back of hand cholecalciferol (vitamin D3) [Vitamin D3] 2,000 unit Capsule 2,000 unit PO DAILY Referrals Referrals: Lori Canchola MD [Primary Care Provider] -
[2022-04-10] MEDS ORDERED: MoRPHine SULFATE 2 MG/ML CARP IV STA (18:59)
--- NOTE | 2022-04-10 18:59 | History & Physical Report ---
Date of Service April 10, 2022 Assessment & Plan (1) Cholelithiases: Plan: - With leukocytosis, RUQ pain, proximal GB stone, in the absence of GB wall thickening or pericholecystic fluid. - Will cover empirically with ceftriaxone and Flagyl. - IVF maintenance fluids. - Consult general surgery, appreciate their recommendations. - CMP in a.m. to monitor LFTs. - Supportive care with IV Tylenol, IV morphine, IV Zofran. We will try lidocaine patch for right rib pain as she notes it feels musculoskeletal in nature. - She is having dyspnea and hypoxia, probably likely related to decreased inspiratory effort due to pain, as well as an effect of receiving multiple doses of IV morphine, will encourage incentive spirometry, DuoNebs available if needed. - Patient has been taking NSAIDs every 3 hours for the past 4 days due to SI joint pain that has not been improved with chiropractor manipulation. - Will allow patient to have regular diet to see if this improves her pain. We will also continue her pantoprazole 40 mg daily. Hemoglobin is 14.1, no evidence of bleeding, denies melena or hematochezia but will monitor this. (2) Hypertension: Plan: - Continue diltiazem 300 mg at night, olmesartan-HCTZ 20mg/12.5 mg in the a.m. (3) Hyperlipidemia: Plan: - Continue Zetia/simvastatin combo. (4) Hypothyroidism: Plan: - Levothyroxine 50 mcg daily. (5) Lichen sclerosus et atrophicus: Plan: - Continue topical creams as prescribed. Plan - Admit to [facility] for observation. - SCDs and Lovenox for DVT PPx. - Full code. History of Present Illness Chief Complaint: RUQ pain x 1 day Primary Care Provider: Lori Canchola MD Aliya Obando a 72-year-old female with a past medical history significant for hypothyroidism, and hyperlipidemia and anxiety who presents today with right rib pain. Last night she experienced right rib pain underneath her breast that was worse with breathing and it has worsened since then. Is persistent and takes her breath away, does not radiate elsewhere, not associated with any nausea, vomiting, diarrhea, pale stools, or constipation. Has not noticed any fevers or had chills at home. Upon presentation to ED, she is mildly hypertensive, otherwise vital signs are within normal limits and stable. Her O2 did drop to 90% on room air, now she is on 2 L NC w/ SpO2 @ 95%. Labs significant for leukocytosis WBC 14.22, low potassium 3.3, glucose mildly elevated at 144. Otherwise labs within normal limits, no other electrolyte abnormalities, renal or liver function acceptable at baseline. Her lipase and LFTs are within normal limits. She is COVID- negative. Her troponin is 7.3. CXR is without evidence of acute chest disease, chest CTA does not show evidence for pulmonary embolus, there are linear densities in the bilateral lower lungs likely atelectasis versus underlying scarring. CT A/P shows a large gallstone in the dependent portion of the gallbladder without any wall thickening or pericholecystic fluid. There is no intra or extrahepatic biliary ductal dilation. GB U/S shows distended gallbladder without evidence of acute cholecystitis, prominent gallstone is noted, wall measuring 0.3 cm in diam diameter. Common duct measures 0.4 cm in diameter. Pancreas appears normal. Cystic area of the left lobe of the liver measuring 2.3 x 3.6 x 3.0 cm Allergies Allergy/AdvReac Type Severity Reaction Status Date / Time lorazepam AdvReac Unknown CAN'T Verified 04/10/22 16:18 REMEMBER methylprednisolone AdvReac Unknown CAN'T Verified 04/10/22 16:18 [From Medrol] REMEMBER Home Medications Medication Instructions Recorded Confirmed Type cholecalciferol (vitamin D3) 50 2,000 unit PO DAILY 10/01/18 04/10/22 History mcg (2,000 unit) capsule (Vitamin D3) tobramycin-dexamethasone 0.3 %-0.1 1 applic ophthalmic (eye) Q8H #3.5 08/27/20 04/10/22 Rx % eye ointment (TobraDex) grams hydrocortisone acetate 25 mg 25 mg [place] DAILY #24 ea 07/29/21 04/10/22 Rx rectal suppository (Anucort-HC) triamcinolone acetonide 0.1 % 1 applic topical BID #80 grams 08/16/21 04/10/22 Rx topical cream oxybutynin chloride 5 mg 5 mg PO DAILY #30 tabs 09/22/21 04/10/22 Rx tablet,extended release 24 hr diclofenac sodium 1 % topical gel 2 g topical QID #100 grams 10/05/21 04/10/22 Rx olmesartan 20 1 tab PO QAM #90 tabs 11/25/21 04/10/22 Rx mg-hydrochlorothiazide 12.5 mg tablet diltiazem HCl 300 mg capsule,24 300 mg PO HS #30 caps 12/06/21 04/10/22 Rx hr,extended release (Taztia XT) ezetimibe 10 mg-simvastatin 40 mg 1 tab PO QDD #30 tabs 12/06/21 04/10/22 Rx tablet clobetasol 0.05 % topical cream 1 applic topical 2XWK #30 grams 02/03/22 04/10/22 Rx pantoprazole 40 mg tablet,delayed 40 mg PO DAILY #90 tabs 02/03/22 04/10/22 Rx release levothyroxine 50 mcg tablet 50 mcg PO DAILY #30 tabs 03/28/22 04/10/22 Rx Past Med/Surg History Medical History Abnormal finding on diagnostic imaging of left kidney Abnormal TSH Abnormal TSH Angiomyolipoma of both kidneys Cardiac murmur Cholelithiases Dysuria Feeling tired Hyperlipidemia Hypertension Lichen sclerosus et atrophicus Sensorineural hearing loss (SNHL) of both ears Strain of muscle, fascia and tendon at neck level, initial encounter Tendinopathy Vitamin D deficiency Surgical History History of appendectomy History of bilateral cataract extraction History of colonoscopy History of cryosurgery History of right breast biopsy x3--benign History of wisdom tooth extraction Family History Mother Diabetes Aunt Breast cancer Maternal Brother Diabetes Father Hypertension Other No family history of adverse response to anesthesia Denies family history of Ovarian cancer Prostate cancer Myocardial infarction Colorectal cancer Social History Smoking Status: Never smoker Second Hand Exposure: No; Hx Alcohol Use: Yes Alcohol type: wine Hx Substance Use: No Preferred Language: Kuwaiti Communication Ability: Effective Visual Impairment: No Limitations Hearing Ability: Normal Parachute Supervisor Required: No Beliefs That Will Affect Care: None marital status: Current Living Situation: Spouse current occupational status: retired Feels Safe at Home: Yes Childhood Exposure to Second-Hand Smoke: No Dental Care, Regularly: Yes Physical Activity Frequency: Does not Exercise Seatbelt Use: always Sunscreen Use: Yes Assistive Devices: Glasses Review of Systems Review of Systems: Constitutional: No fever/chills, weakness, fatigue, myalgias, anorexia, night sweats Eyes: No diplopia, no worsening or blurred vision ENT: normal hearing, no trouble swallowing Respiratory: No cough, sputum, dyspnea at rest or on exertion Cardiovascular: No chest pain, tightness or palpitations Abdomen: Pleuritic right upper quadrant abdominal pain; no nausea, vomiting, diarrhea or constipation : Denies dysuria, hematuria, increased urgency/frequency, urinary retention Musculoskeletal: No joint pain, calf pain, swelling Neurologic: No weakness, numbness/tingling, or balance problems Psychiatric: No anxiety or depression Skin: No rash or itch Physical Exam Physical Exam: General: awake, alert, no apparent distress Head: Normocephalic, atraumatic ENT: PERRL, EOMI, no pharyngeal exudate, mucous membranes moist Chest: Respirations are painful, however clear to auscultation, on room air, no adventitious breath sounds Cardiac: Regular rate and rhythm, no murmur, no JVD, normal peripheral pulses, good capillary refill Abdominal: NABS x 4 quadrants, soft, nontender to palpation, no rebound, guarding or tenderness Extremities: Normal inspection, no peripheral edema or erythema, calfs nontender to palpation Psych: Normal mood and affect Neuro: AAO x 3, strength intact bilaterally and rated 5/5, no motor deficits, speech is clear, no peripheral sensory deficits Skin: no rash or erythema Results & Data Results & Data ([facility]) Vital Signs (Past 12 Hours) Vital Signs Temp Pulse Pulse Resp BP BP Pulse Ox 04/10/22 17:09 79 16 135/81 95 04/10/22 14:02 70 160/70 H 92 04/10/22 12:08 95 04/10/22 12:08 77 22 155/79 H 95 04/10/22 12:08 04/10/22 11:38 36.6 C 84 20 142/73 H 95 O2 Del Method O2 Flow Rate 04/10/22 17:09 Nasal Cannula 2 04/10/22 14:02 Room Air 04/10/22 12:08 Room Air 04/10/22 12:08 Room Air 04/10/22 12:08 Room Air 95 04/10/22 11:38 Room Air Laboratory Results Abnormal lab results 04/10/22 04/10/22 Range/Units 11:50 11:50 WBC 14.22 H (4.8-10.8) K/ul RDW Std Deviation 47.4 H (36.4-46.3) fL MPV 8.7 L (9.4-12.3) fL Neut # (Auto) 9.50 H (1.4-6.5) K/uL [place] # (Auto) 1.27 H (0.24-0.82) K/uL Immature Gran # (Auto) 0.08 H (0.00-0.02) K/uL Potassium 3.3 L (3.5-5.1) mmol/L BUN/Creatinine Ratio 23.5 H (10-20) Glucose 144 H (70-99(Fasting)) mg/dl Diagnostic Findings Chest X-Ray 04/10/22 11:56 XR chest 1V portable CLINICAL HISTORY: Chest Pain TECHNIQUE: Single frontal radiograph of the chest was obtained. Comparison: Comparison is made to rib series 02/04/2021 FINDINGS: No lines and tubes are seen. The cardiomediastinal silhouette is normal. Lungs are underinflated and there is atelectasis in the lower lobes. No evidence of pleural effusion or pneumothorax. IMPRESSION: No acute chest disease. ACT 112: Negative or not required by law. Electronically signed by: Kam Rothman M.D. 04/10/2022 12:15 PM Abdomen/Pelvis CT 04/10/22 12:26 CT abd pelvis IV con only CLINICAL HISTORY: RUQ pain, gallstones TECHNIQUE: Helical axial images of the abdomen and pelvis were obtained and displayed. Automated dose lowering techniques and/or adjustment according to patient size were utilized for this exam. This exam was performed with intravenous contrast. COMPARISON: Comparison is made to CT abdomen pelvis 10/01/2021 FINDINGS: Lower chest: For findings above the diaphragm, please see CT chest performed same day. Liver: Hepatic cysts are seen. Gallbladder and biliary tree: A large gallstone is seen in the dependent portion of the gallbladder. No wall thickening or pericholecystic fluid is seen. No intra- or extrahepatic biliary ductal dilation. Pancreas: Unremarkable, no focal lesions. Spleen: Unremarkable. Adrenals: Unremarkable. Kidneys and ureters: Subcentimeter hypodensities are too small to characterize. A tiny cyst in the left mid pole is again noted, simple fluid attenuation. Bladder: Unremarkable. Reproductive organs: Unremarkable. Bowel: Diverticulosis is seen without evidence of diverticulitis. Lymph nodes Retroperitoneal: Unremarkable. Pelvic: Unremarkable. Mesenteric: Unremarkable. Peritoneum: Normal. Vessels: Atherosclerotic calcifications are seen. Abdominal wall: Unremarkable. Bones: Unremarkable. IMPRESSION: 1. No acute abnormalities are seen. There is cholelithiasis without evidence of cholecystitis, unchanged from prior exam. 2. Subcentimeter hypodensities in the kidneys are too small to characterize but may represent angiomyolipomas. 3. A cyst is noted in the midpole of the left kidney corresponding to the hyperdense lesion seen on prior exam. This likely represents a cyst with a resolved hemorrhagic/proteinaceous component. ACT 112: Negative or not required by law. Electronically signed by: Kam Rothman M.D. 04/10/2022 1:40 PM Chest CTA 04/10/22 12:26 CT angio chest PE protocol CLINICAL HISTORY: right lower cp, pleurisy, r/o PE TECHNIQUE: Multidetector row helical CT of the chest was performed with angiographic protocol. Coronal and sagittal reformations were obtained. Coronal and sagittal MIPS were obtained from the axial data set and were submitted for review. Automated dose lowering techniques and/or adjustment according to patient size were utilized for this exam. CT DOSE: 1134.74 mGy.cm Comparison: None available at the time of this dictation. FINDINGS: Lungs and pleura: Atelectasis versus scarring is seen in the dependent portions of the lungs. Heart and pericardium: Heart size is normal. No pericardial effusion. Vessels: No evidence of pulmonary embolism. Mediastinum and kasie: Unremarkable. Chest wall and lower neck: Subcentimeter thyroid nodules are noted which do not require follow-up by ACR criteria. Abdomen: A cyst is noted in the left liver. Bones: Degenerative changes in the thoracic spine. IMPRESSION: 1. No acute abnormality, in particular no evidence of pulmonary embolus. 2. Linear densities in the bilateral lower lungs are favored to represent atelectasis, underlying scarring cannot be excluded. ACT 112: Negative or not required by law. Electronically signed by: Kam Rothman M.D. 04/10/2022 1:33 PM Gallbladder Ultrasound 04/10/22 14:15 US gallbladder CLINICAL HISTORY: RUQ pain TECHNIQUE: Multiple real-time sonographic images of the right upper quadrant were obtained. Comparison: Comparison is made to CT abdomen pelvis 04/10/2022 FINDINGS: The liver is diffusely homogenous with normal contour and echogenicity. There is a cystic area in the left lobe measuring 2.3 x 3.6 x 3.0 cm. No intrahepatic ductal dilatation is seen. A prominent gallstone is noted. The gallbladder is distended. The wall measures 0.3 cm in diameter. A sonographic Herrera's sign was not elicited by the separator tender. The common duct measures 0.4 cm in diameter at the level of the hepatic artery. The visualized portions of the pancreas appear normal. The right kidney shows normal echogenicity, cortical thickness and renal contour. The right kidney shows no evidence of hydronephrosis or mass. No ascites or free fluid is seen in Veronica's pouch. IMPRESSION: 1. Distended gallbladder without evidence of acute cholecystitis. 2. Left hepatic cyst is again noted. ACT 112: Negative or not required by law. Electronically signed by: Kam Rothman M.D. 04/10/2022 5:47 PM ECG Additional Comments: Normal sinus rhythm Possible Left atrial enlargement Left ventricular hypertroph y Nonspecific ST abnormality Abnormal ECG When compared with ECG of 25-JUN-2010 06:26, T wave inversion now evident in Inferior leads. Code Status & VTE Plan Code Status Full Code. Supervising Physician Co-Signing Physician Notes Attending addendum: I have physically seen this patient, have supervised the FARZAD's activities, and agree with the H&P unless as otherwise noted. Assessment and Plan: Cholelithiasis/right upper quadrant pain- Ceftriaxone and Flagyl IV as noted N.p.o. IV fluids Acetaminophen 1 g IV every 8 hours. Mild pain or fever Morphine sulfate 4 mg IV every 3 hours as needed severe pain Zofran 4 mg IV every 6 hours as needed Famotidine 20 mg IV every 12 hours Patient does note significant use of ibuprofen, every 3 hours, over the past 3 to 4 days for sacroiliac pain, so therefore must consider gastritis/esophagitis /ulcers as a potential cause of symptoms General surgery consult Dr. Paulo Ko aware Hypertension- Continue diltiazem Hold olmesartan HCTZ Hyperlipidemia- Hold Zetia/simvastatin Hypothyroidism- Hold levothyroxine PG Care Time/CCT Total # of Minutes Spent Total Time Spent with Patient: Total time spent is greater than 50% in coordination of care (as documented) at patient's floor/unit and/or counseling patient: Coding Level of Care Code INT OBSERVATION CARE 70M LVL 3 Diagnoses Cholelithiases K80.20 Hypertension I10 Hyperlipidemia E78.5 Hypothyroidism E03.9 Lichen sclerosus et atrophicus L90.0
[2022-04-10] MEDS ORDERED: metroNIDAZOLE 500 MG/100 ML BAG IV STA (20:15)
[2022-04-10] MEDS ORDERED: cefTRIAXone SODIUM 1,000 MG/50 ML BAG IV STA (20:20)
--- NOTE | 2022-04-10 20:50 | Surgery Consultation ---
Date of Consultation April 10, 2022 Assessment & Plan (1) Abdominal pain: I do suspect this is from biliary colic and a significantly distended gallbladder She could also have some mild gastritis from taking her NSAIDs I have discussed with her the possibility of laparoscopic cholecystectomy over the next 24 to 48 hours She seems to be in agreement as this has not really happened to her before I will tentatively add her to the OR schedule for tomorrow for laparoscopic cholecystectomy Continue IV antibiotics History of Present Illness History of Present Illness 72-year-old female with episodes of right upper quadrant lower chest pain over the past 24 hours having her present to the emergency room There was some concern that this was a cardiopulmonary problem but this has been ruled out relatively well with studies She did have some hypoxia secondary to splinting from the discomfort Her CAT scan does show distended gallbladder with large stone in the mid gallbladder Her ultrasound showed distended gallbladder with some wall thickening Suggestion of a HIDA but this cannot be done until Monday Allergies Allergy/AdvReac Type Severity Reaction Status Date / Time lorazepam AdvReac Unknown CAN'T Verified 04/10/22 16:18 REMEMBER methylprednisolone AdvReac Unknown CAN'T Verified 04/10/22 16:18 [From Medrol] REMEMBER Home Medications Medication Instructions Recorded Confirmed Type cholecalciferol (vitamin D3) 50 2,000 unit PO DAILY 10/01/18 04/10/22 History mcg (2,000 unit) capsule (Vitamin D3) tobramycin-dexamethasone 0.3 %-0.1 1 applic ophthalmic (eye) Q8H #3.5 08/27/20 04/10/22 Rx % eye ointment (TobraDex) grams hydrocortisone acetate 25 mg 25 mg [place] DAILY #24 ea 07/29/21 04/10/22 Rx rectal suppository (Anucort-HC) triamcinolone acetonide 0.1 % 1 applic topical BID #80 grams 08/16/21 04/10/22 Rx topical cream oxybutynin chloride 5 mg 5 mg PO DAILY #30 tabs 09/22/21 04/10/22 Rx tablet,extended release 24 hr diclofenac sodium 1 % topical gel 2 g topical QID #100 grams 10/05/21 04/10/22 Rx olmesartan 20 1 tab PO QAM #90 tabs 11/25/21 04/10/22 Rx mg-hydrochlorothiazide 12.5 mg tablet diltiazem HCl 300 mg capsule,24 300 mg PO HS #30 caps 12/06/21 04/10/22 Rx hr,extended release (Taztia XT) ezetimibe 10 mg-simvastatin 40 mg 1 tab PO QDD #30 tabs 12/06/21 04/10/22 Rx tablet clobetasol 0.05 % topical cream 1 applic topical 2XWK #30 grams 02/03/22 04/10/22 Rx pantoprazole 40 mg tablet,delayed 40 mg PO DAILY #90 tabs 02/03/22 04/10/22 Rx release levothyroxine 50 mcg tablet 50 mcg PO DAILY #30 tabs 03/28/22 04/10/22 Rx Patient History Medical History Abnormal finding on diagnostic imaging of left kidney Abnormal TSH Abnormal TSH Angiomyolipoma of both kidneys Cardiac murmur Cholelithiases Dysuria Feeling tired Hyperlipidemia Hypertension Lichen sclerosus et atrophicus Sensorineural hearing loss (SNHL) of both ears Strain of muscle, fascia and tendon at neck level, initial encounter Tendinopathy Vitamin D deficiency Surgical History History of appendectomy History of bilateral cataract extraction History of colonoscopy History of cryosurgery History of right breast biopsy x3--benign History of wisdom tooth extraction Family History Mother Diabetes Aunt Breast cancer Maternal Brother Diabetes Father Hypertension Other No family history of adverse response to anesthesia Denies family history of Ovarian cancer Prostate cancer Myocardial infarction Colorectal cancer Social History Smoking Status: Never smoker Second Hand Exposure: No; Hx Alcohol Use: Yes Alcohol type: other Hx Substance Use: No Preferred Language: Kazakh Communication Ability: Effective Visual Impairment: No Limitations Hearing Ability: Normal Pet Care Technician Required: No Beliefs That Will Affect Care: None marital status: Current Living Situation: Spouse current occupational status: retired Feels Safe at Home: Yes Childhood Exposure to Second-Hand Smoke: No Dental Care, Regularly: Yes Physical Activity Frequency: Does not Exercise Seatbelt Use: always Sunscreen Use: Yes Assistive Devices: Glasses Review of Systems Review of Systems: All systems reviewed & are unremarkable except as noted in HPI & below Physical Exam Physical Exam: She has a normal affect is in his neck in no distress She does have oxygen via nasal cannula in place Her abdomen is soft and she does not have specific tenderness Constitutional: well nourished; no acute distress Eyes: sclerae not anicteric Respiratory: normal respiratory effort; no respiratory distress Cardiovascular: Rate/Rhythm: regular rate Gastrointestinal (Abdomen): Inspection/Auscultation: abdomen normal to inspection; abdomen not distended Musculoskeletal: Head/Neck/Chest: head atraumatic Skin: no rashes, warm and dry Neurologic: awake Psychiatric: Orientation: alert Results & Data ([facility]) Vital Signs (Past 12 Hours) Vital Signs Temp Pulse Pulse Resp BP BP Pulse Ox 04/10/22 19:32 77 18 168/73 H 96 04/10/22 17:09 79 16 135/81 95 04/10/22 14:02 70 160/70 H 92 04/10/22 12:08 95 04/10/22 12:08 77 22 155/79 H 95 04/10/22 12:08 04/10/22 11:38 36.6 C 84 20 142/73 H 95 O2 Del Method O2 Flow Rate 04/10/22 19:32 Nasal Cannula 2 04/10/22 17:09 Nasal Cannula 2 04/10/22 14:02 Room Air 04/10/22 12:08 Room Air 04/10/22 12:08 Room Air 04/10/22 12:08 Room Air 95 04/10/22 11:38 Room Air Laboratory Results I reviewed her laboratories her white count is 14.2 Diagnostic Findings I reviewed her ultrasound films and CT scan films PG Care Time/CCT Total # of Minutes Spent Total Time Spent with Patient: Total time spent is greater than 50% in coordination of care (as documented) at patient's floor/unit and/or counseling patient: Coding Level of Care Code 07685 Office/Outpt Visit, New Diagnoses Abdominal pain R10.9
[2022-04-10] MEDS ORDERED: POLYETHYLENE (MIRALAX) 17 GM PACK PO PRN (22:22)
[2022-04-10] MEDS ORDERED: ALBUT/IPRATROP 3MG/0.5MG NEB 3 ML VIAL NEB PRN (22:22)
[2022-04-10] MEDS ORDERED: MoRPHine SULFATE 4 MG/ML 1 ML CARP\\VIAL IV PRN (22:22)
[2022-04-10] MEDS ORDERED: ACETAMINOPHEN 1,000 MG/100 ML VIAL IV PRN (22:22)
[2022-04-10] MEDS ORDERED: MoRPHine SULFATE 2 MG/ML CARP IV PRN (22:22)
[2022-04-10] MEDS: dilTIAZem ER 180 MG CAPCR PO SCH (23:39)
[2022-04-10] MEDS: dilTIAZem ER 120 MG CAPCR PO SCH (23:39)
[2022-04-10] MEDS: TOBRAMYCIN/DEXAMETHASONE OPH OINT 3.5 GM TUBE OP SCH (23:40)
[2022-04-10] MEDS: LIDOCAINE 5% 1 PATCH TD SCH (23:40)
[2022-04-10] MEDS: TRIAMCINOLONE ACET 0.1% CR 15 GM TUBE TOP SCH (23:40)
[2022-04-10] MEDS: DICLOFENAC SOD 1% GEL 100 GM TUBE EXT SCH (23:40)
[2022-04-11] MEDS: LACTATED RINGER'S 1,000 ML IV SCH ×3 (00:11→14:21)
[2022-04-11] MEDS: metroNIDAZOLE 500 MG/100 ML BAG IV SCH ×3 (05:46→22:18)
--- NOTE | 2022-04-11 06:24 | Surgery Progress Note ---
Date of Service April 11, 2022 Assessment & Plan (1) Cholecystitis: Plan: I believe the best plan is to proceed with laparoscopic cholecystectomy today We cannot be sure it is causing all of her symptoms but with her distended gallbladder and stones I feel we should proceed and the patient agrees Admission and Anticipated Discharge Date Admission Date: April 10, 2022 Subjective Patient awake and alert in no distress Still complains of some right upper quadrant pain Physical Exam Physical Exam: No significant change in exam Results & Data ([facility]) Vital Signs (Past 12 Hours) Vital Signs Temp Pulse Resp BP Pulse Ox O2 Del Method O2 Flow Rate 04/11/22 04:03 93 Nasal Cannula 2 04/11/22 04:00 67 89 L Room Air 04/10/22 22:35 Nasal Cannula 2 04/10/22 22:35 37.2 C 93 H 20 160/91 H 93 Nasal Cannula 2 04/10/22 22:30 37.2 C 93 H 20 160/91 H 93 Nasal Cannula 2 04/10/22 21:29 73 174/85 H Nasal Cannula 2 04/10/22 19:32 77 18 168/73 H 96 Nasal Cannula 2 PG Care Time/CCT Total # of Minutes Spent Total Time Spent with Patient: Total time spent is greater than 50% in coordination of care (as documented) at patient's floor/unit and/or counseling patient: Coding Level of Care Code None Diagnoses Cholecystitis K81.9
[2022-04-11] MEDS ORDERED: LEVOTHYROXINE SODIUM 50 MCG TABLET PO SCH (06:30)
[2022-04-11] MEDS ORDERED: BUPIVACAINE 0.5 % 5 MG/1 ML MPF 30ML VIAL ONE (07:22)
[2022-04-11] MEDS ORDERED: ROCURONIUM BROMIDE 10 MG/ML 5 ML VIAL IV ONE (07:31)
[2022-04-11] MEDS ORDERED: fentaNYL citrate 100 MCG/2 ML VIAL ONE ×3 (07:31→10:09)
[2022-04-11] MEDS ORDERED: PROPOFOL IV EMULSION 10 MG/ML 20 ML VIAL IV ONE (07:31)
--- NOTE | 2022-04-11 07:37 | Electrocardiogram Report ---
Test Reason : Blood Pressure : / mmHG Vent. Rate : 083 BPM Atrial Rate : 083 BPM P-R Int : 158 ms QRS Dur : 088 ms QT Int : 344 ms P-R-T Axes : 040 -17 010 degrees QTc Int : 404 ms Poor data quality, interpretation may be adversely affected Normal sinus rhythm Possible Left atrial enlargement Left ventricular hypertrophy Nonspecific ST abnormality Poor R wave progression, consider anterior GA vs. lead placement vs. LVH Abnormal ECG When compared with ECG of 25-JUN-2010 06:26, T wave inversion now evident in Inferior leads Confirmed by Good Huang ([id number]) on 04/11/2022 7:37:33 AM Referred By: REFERRED SELF Confirmed By:Burton Huang
[2022-04-11 07:43] LABS: Basophils # (auto) 0.01 K/uL (0-0.2); Basophils % (auto) 0.1 %; Eosinophils # (auto) 0.03 K/uL (0-0.50); Eosinophils % (auto) 0.3 %; Hematocrit (blood only) 39.4 % (34.1-44.9); Immature Granulocytes # (auto) 0.04 K/uL (0.00-0.02); Immature Granulocytes % (auto) 0.4 %; Lymphocytes % (auto) 15.4 %; Mean Corpuscular Hemoglobin 30.7 pg (25.0-34.0); Mean Corpuscular Volume 92.9 fL (80.0-100.0); Mean Platelet Volume 8.3 fL (9.4-12.3); Monocytes # (auto) 1.19 K/uL (0.24-0.82); Monocytes % (auto) 11.5 %; Neutrophils # (auto) 7.52 K/uL (1.4-6.5); Neutrophils % (auto) 72.3 %; Platelet Count 182 K/uL (130-400); RDW Standard Deviation 47.9 fL (36.4-46.3); Red Blood Count 4.24 M/uL (3.93-5.22); White Blood Count 10.39 K/ul (4.8-10.8)
[2022-04-11] MEDS ORDERED: ATROPINE SULFATE 0.1 MG/ML 10ML SYR IV PRN (07:44)
[2022-04-11] MEDS ORDERED: ONDANSETRON INJ 2 MG/ML 2 ML VIAL IV PRN ×2 (07:44→11:46)
[2022-04-11] MEDS ORDERED: ePHEDrine sulfate 50 MG/ML AMP IV PRN (07:44)
[2022-04-11] MEDS ORDERED: HYDROmorphone INJ 2 MG/ML SYR/VIAL IV PRN (07:44)
[2022-04-11] MEDS ORDERED: fentaNYL citrate 100 MCG/2 ML VIAL IV PRN (07:44)
--- NOTE | 2022-04-11 07:44 | Anesthesiology Consultation ---
Date of Service April 11, 2022 Assessment & Plan ASA ASA3 Proposed Anesthesia Anesthesia Type: General Risk / Benefits Reviewed With: PT / POA / Parent / Guardian, Accepts Plan and Informed Consent Obtained History Surgery Operation Date: 04/11/22 07:30 Proposed Procedures p Laparoscopic Cholecystectomy - Paulo Ko MD, FACS Height/Weight Height: 5 ft 4 in Weight: 80.1 kg Allergies Allergy/AdvReac Type Severity Reaction Status Date / Time lorazepam AdvReac Unknown CAN'T Verified 04/10/22 16:18 REMEMBER methylprednisolone AdvReac Unknown CAN'T Verified 04/10/22 16:18 [From Medrol] REMEMBER Medications Home Medications Medication Instructions Recorded Confirmed Last Taken cholecalciferol (vitamin D3) 50 2,000 unit PO DAILY 10/01/18 04/10/22 04/09/22 mcg (2,000 unit) capsule (Vitamin D3) tobramycin-dexamethasone 0.3 %-0.1 1 applic ophthalmic (eye) Q8H #3.5 08/27/20 04/10/22 Unknown % eye ointment (TobraDex) grams hydrocortisone acetate 25 mg 25 mg TX DAILY #24 ea 07/29/21 04/10/22 04/09/21 rectal suppository (Anucort-HC) triamcinolone acetonide 0.1 % 1 applic topical BID #80 grams 08/16/21 04/10/22 04/09/22 topical cream oxybutynin chloride 5 mg 5 mg PO DAILY #30 tabs 09/22/21 04/10/22 04/09/22 tablet,extended release 24 hr diclofenac sodium 1 % topical gel 2 g topical QID #100 grams 10/05/21 04/10/22 04/09/22 olmesartan 20 1 tab PO QAM #90 tabs 11/25/21 04/10/22 04/10/22 mg-hydrochlorothiazide 12.5 mg tablet diltiazem HCl 300 mg capsule,24 300 mg PO HS #30 caps 12/06/21 04/10/22 04/09/22 hr,extended release (Taztia XT) ezetimibe 10 mg-simvastatin 40 mg 1 tab PO QDD #30 tabs 12/06/21 04/10/22 04/09/22 tablet clobetasol 0.05 % topical cream 1 applic topical 2XWK #30 grams 02/03/22 04/10/22 Unknown pantoprazole 40 mg tablet,delayed 40 mg PO DAILY #90 tabs 02/03/22 04/10/22 04/09/22 release levothyroxine 50 mcg tablet 50 mcg PO DAILY #30 tabs 03/28/22 04/10/22 04/09/22 Active Medications Generic Name Dose Route Start Last Admin Trade Name Freq PRN Reason Stop Dose Admin Diclofenac Sodium 2 gm 04/10/22 22:22 04/10/22 23:40 Diclofenac Sod 1% Gel 100 Gm Tube EXT 05/10/22 22:21 Not Given QID JOE Protocol Diltiazem HCl 120 mg 04/10/22 22:22 04/10/22 23:39 Diltiazem Er 120 Mg Capcr PO 05/10/22 22:21 120 mg HS JOE Administration Diltiazem HCl 180 mg 04/10/22 22:22 04/10/22 23:39 Diltiazem Er 180 Mg Capcr PO 05/10/22 22:21 180 mg HS JOE Administration Lactated Ringer's 1,000 mls @ 125 mls/hr 04/10/22 20:15 04/11/22 07:27 Lr IV 05/10/22 20:14 0 mls/hr .Q8H JOE Infusion Acetaminophen 1,000 mg in 100 mls @ 400 mls/hr 04/10/22 22:22 04/11/22 00:33 Ofirmev IV 04/13/22 22:21 Infused Q8H PRN Infusion Mild Pain or Fever Metronidazole 500 mg in 100 mls @ 100 mls/hr 04/11/22 06:00 04/11/22 06:49 Flagyl IV 04/21/22 05:59 Infused Q8H JOE Infusion Lidocaine 1 patch 04/10/22 21:30 04/10/22 23:40 Lidocaine 5% 1 Patch TD 05/10/22 21:29 Not Given HS JOE Tobramycin/Dexamethasone 1 appln 04/10/22 23:00 04/10/22 23:40 Tobramycin/Dexamethasone Oph Oint 3.5 Gm Tube OP 05/10/22 22:59 Not Given Q8H JOE Triamcinolone Acetonide 1 appln 04/10/22 22:22 04/10/22 23:40 Triamcinolone Acet 0.1% Cr 15 Gm Tube TOP 05/10/22 22:21 Not Given BID JOE NPO Date Last Intake of Fluids: 04/10/22 Time Last Intake of Fluids: 21:00 Date Last Intake of Solids: 04/10/22 Time Last Intake of Solids: 23:50 Last Intake of Solids Comment: sip this am with medication Past Medical History Medical History Abnormal finding on diagnostic imaging of left kidney Abnormal TSH Abnormal TSH Angiomyolipoma of both kidneys Cardiac murmur Cholelithiases Dysuria Feeling tired Hyperlipidemia Hypertension Lichen sclerosus et atrophicus Sensorineural hearing loss (SNHL) of both ears Strain of muscle, fascia and tendon at neck level, initial encounter Tendinopathy Vitamin D deficiency Exercise / Class Metabolic Activity II 4-5 Yardwork/Stairs/Walk up hill Past Family History Family History Mother Diabetes Aunt Breast cancer Maternal Brother Diabetes Father Hypertension Other No family history of adverse response to anesthesia Denies family history of Ovarian cancer Prostate cancer Myocardial infarction Colorectal cancer Past Surgical History Surgical History History of appendectomy History of bilateral cataract extraction History of colonoscopy History of cryosurgery History of right breast biopsy x3--benign History of wisdom tooth extraction Past Anesthesia History No Hx of Anesthesia Complications and No Family Hx of Anesthesia Complications History of PONV No Hx of PONV and No Hx of Motion Sickness Social History Smoking Status: Never smoker Do You Dip or Chew Tobacco: No Hx Alcohol Use: Yes Alcohol type: wine alcohol intake frequency: holidays/special occasions only Hx Substance Use: No substance use type: does not use Review of Systems denies fever/cough/ colds/ chest pain/ SOB/ LILLI denies LILLI Physical Exam Vital Signs Last Vital Signs Temp 37.2 C 04/10/22 22:35 Pulse 67 04/11/22 04:00 Resp 20 04/10/22 22:35 BP 160/91 H 04/10/22 22:35 Pulse Ox 93 04/11/22 04:03 O2 Del Method 04/11/22 04:03 O2 Flow Rate 2 04/11/22 04:03 ENMT Mouth: no TMJ abnormality and no dentition abnormality Thyromental Distance: > or= 3.5 Finger Breadths Mallampati Class: II Neck neck extension not limited Respiratory normal respiratory effort; no respiratory distress Auscultation: lungs clear to auscultation bilaterally Cardiovascular Rate/Rhythm: regular rate and regular rhythm Neurologic moves all extremities Psychiatric Orientation: alert and oriented x 3 Testing Laboratory Results 04/11/22 07:25
[2022-04-11 08:04] LABS: Albumin Globulin Ratio 1.3 (0.9-2); Albumin Level 3.5 gm/dl (3.4-5.0); BUN Creatinine Ratio 18.8 (10-20); Bilirubin,Total 0.5 mg/dl (0.2-1.0); Calcium 9.5 mg/dl (8.5-10.1); Creatinine Clr Calc Pharmacy 80.2 ml/min; Est GFR (African American) 102.6 ml/min; Est GFR (Non-African American) 88.5 ml/min; Globulin 2.7 gm/dl (2.5-4.0); Potassium 3.5 mmol/L (3.5-5.1); Total Protein 6.2 gm/dl (6.0-8.3)
[2022-04-11] MEDS ORDERED: ePHEDrine sulfate 50 MG/ML SYR ONE (08:11)
[2022-04-11] MEDS ORDERED: NEOSTIGMINE METHYLSULFATE 1 MG/ML 10ML VIAL ONE (08:11)
[2022-04-11] MEDS ORDERED: ONDANSETRON INJ 2 MG/ML 2 ML VIAL ONE ×2 (08:11→10:50)
[2022-04-11] MEDS ORDERED: GLYCOPYRROLATE 0.2 MG/ML VIAL ONE (08:11)
[2022-04-11] MEDS ORDERED: HYDROmorphone INJ 1 MG/ML SYRINGE ONE (08:45)
[2022-04-11] MEDS ORDERED: OXYBUTYNIN CHLORIDE XL 5 MG TABCR PO SCH (09:00)
[2022-04-11] MEDS ORDERED: hydroCHLOROthiazide 25 MG TAB PO SCH (09:00)
[2022-04-11] MEDS ORDERED: PANTOprazole 40 MG TAB PO SCH (09:00)
[2022-04-11] MEDS ORDERED: OLMESARTAN MEDOXOMIL 20 MG TAB PO SCH (09:00)
--- NOTE | 2022-04-11 09:48 | Post Operative Brief Note ---
PG Immediate Post Op with CF Date of Surgery April 11, 2022 Pre & Post Diagnosis Operation Date: 04/11/22 07:30 Pre-Op Diagnosis: (1) Cholecystitis Post-Op Diagnosis: (1) Cholecystitis, acute and severe chronic cholecystitis Severe adhesions to the duodenum mesentery and colon, also within the navya hepatis I identified the patient and participated in the time-out.: Yes Procedure Operation Date: 04/11/22 07:30 Actual Procedures p Laparoscopy, Open Cholecystectomy(Not Applicable) - Paulo Ko MD, FACS Surgeon Paulo Ko MD, FACS Modeling Agency Manager Zenaida Garibay Estimated Blood Loss 20 Findings Consistent with Post-Op Diagnosis During laparoscopy I could not specifically identify the colon and gallbladder secondary to severe adhesions Patient had a severely distended gallbladder requiring open operation and lysis of adhesions including the duodenum mesentery And colon as well as severe chronic adhesions within the navya hepatis Specimens Specimen Description: A. Gallbladder Drains Nando-Greer Drain (19 fr) and Sade Drain
[2022-04-11] MEDS ORDERED: ACETAMINOPHEN 1,000 MG/100 ML VIAL IV ONE (09:49)
--- NOTE | 2022-04-11 10:13 | Operative Report (OR) ---
DATE OF OPERATION: 04/11/2022. NAME OF OPERATION: Laparoscopy with open cholecystectomy and enterolysis. STAFF SURGEON: Paulo Ko MD. FAMILY MEMBER CARETAKER: Rehana Garibay PA-C. ANESTHESIA: General. FINDINGS: On laparoscopy, the patient had very dense adhesions overlying the gallbladder and subhepatic site involving the duodenum, mesentery and colon, such that I could not identify structures to my satisfaction, specifically the colon, and therefore, I felt that we required open operation. The gallbladder was severely distended with severe chronic adhesions to the named structures and also within the navya hepatis itself. Even with the open operation I had difficulty identifying the gallbladder secondary to dense thick adhesions-but I was finally able to discern The gallbladder and separation from the colon small bowel and stomach. DESCRIPTION OF PROCEDURE: The patient was brought in the operating room and placed on the operating table in supine position. Her abdomen was prepped and draped in the usual fashion. Pneumatic stockings and orogastric tube were placed. 0.5% plain Marcaine was used to anesthetize all incisions. Incision was made above the umbilicus, carrying dissection down through significant adipose tissue, placing a Veress needle into the abdomen, producing pneumoperitoneum. An 11 mm port placed at this level and under visualization, three 5 mm ports were placed, one cephalad and two laterally. On inspection, there were severe adhesions overlying the gallbladder and to the liver in the subhepatic space. Through significant dissection medial and lateral, I was essentially unable to specifically identify the gallbladder and the colon. I was very concerned that I may injure the colon or make an enterotomy. Therefore, I decided to proceed with an open operation. A right subcostal incision was made connecting the 5 mm port sites, carrying dissection down into the abdomen. Bookwalter was used. The dissection was carried out in the subhepatic space. Finally, I was able to identify the gallbladder, which had severe adhesions overlying it to the mesentery, colon, and navya hepatis. The dissection was carried out from the top down position, identifying the cystic artery and cystic duct. These were transected and ligated using 2-0 silk suture for the artery and 2-0 chromic suture for the duct as well as clips. After appropriate hemostasis and irrigation, I was able to also identify the area of the colon. There was no injury to the colon. The initially identified structure was most likely a very distended patulous gallbladder. At this point, a 19 round Nando-Greer drain placed in the subhepatic space through a separate stab incision and secured using 3-0 nylon suture. The posterior fascia and peritoneum reapproximated using a running #1 chromic suture. Anterior fascia reapproximated using running #1 PDS suture. [place] drain placed in the subcutaneous space, secured using 4-0 nylon suture. Subcutaneous tissue loosely reapproximated using 2-0 plain suture, skin reapproximated using mavis. Umbilical incision closed using 0 Vicryl for the fascia and mavis for the skin. Dressing applied. The patient was transferred to recovery room in stable condition. My photo studio assistant helped with prepping, draping, removal of the gallbladder and closure of the wound. Job ID: [id number] [facility]
[2022-04-11] MEDS ORDERED: ACETAMINOPHEN 1000 MG/100 ML IV IV ONE (10:15)
[2022-04-11] MEDS: DICLOFENAC SOD 1% GEL 100 GM TUBE EXT SCH ×4 (11:13→20:32)
[2022-04-11] MEDS: CHOLECALCIFEROL 1,000 UNITS 25 MCG TAB PO SCH (11:13)
[2022-04-11] MEDS: TOBRAMYCIN/DEXAMETHASONE OPH OINT 3.5 GM TUBE OP SCH ×3 (11:13→22:22)
[2022-04-11] MEDS: TRIAMCINOLONE ACET 0.1% CR 15 GM TUBE TOP SCH ×2 (11:37→20:32)
[2022-04-11] MEDS: FAMOTIDINE 20 MG in SYRINGE 3 ML IV SCH ×2 (11:38→20:34)
[2022-04-11] MEDS: HYDROCORTISONE ACETATE 25 MG SUPP PR SCH (11:38)
[2022-04-11] MEDS ORDERED: PROMETHAZINE HCL 12.5 MG in SODIUM CHLORIDE 0.9% 50 ML IV PRN (11:46)
[2022-04-11] MEDS ORDERED: HYDROmorphone INJ 0.5 MG/0.5 ML SYR IV PRN (11:46)
[2022-04-11] MEDS: cefTRIAXone SODIUM 2,000 MG in DEXTROSE 5% 50 ML IV SCH (12:03)
--- NOTE | 2022-04-11 12:19 | Anesthesiology Progress Note ---
Date of Service April 11, 2022 Anesthesia Post Procedure Vital Signs Vital Signs: Temp Pulse Pulse Pulse Resp BP BP 04/11/22 10:35 78 18 151/78 H 04/11/22 10:15 77 18 147/65 H 04/11/22 10:05 77 23 159/69 H 04/11/22 10:25 77 16 155/78 H 04/11/22 04:03 04/11/22 04:00 67 04/10/22 22:35 04/10/22 22:35 37.2 C 93 H 20 04/10/22 22:30 37.2 C 93 H 20 04/10/22 21:29 73 04/10/22 19:32 77 18 04/10/22 17:09 79 16 04/10/22 14:02 70 04/10/22 12:08 04/10/22 12:08 77 22 04/10/22 12:08 04/10/22 11:38 36.6 C 84 20 142/73 H BP Pulse Ox O2 Del Method O2 Flow Rate 04/11/22 10:35 91 Nasal Cannula 4 04/11/22 10:15 94 Oxymask 6 04/11/22 10:05 94 Oxymask 6 04/11/22 10:25 94 Oxymask 6 04/11/22 04:03 93 Nasal Cannula 2 04/11/22 04:00 89 L Room Air 04/10/22 22:35 Nasal Cannula 2 04/10/22 22:35 160/91 H 93 Nasal Cannula 2 04/10/22 22:30 160/91 H 93 Nasal Cannula 2 04/10/22 21:29 174/85 H Nasal Cannula 2 04/10/22 19:32 168/73 H 96 Nasal Cannula 2 04/10/22 17:09 135/81 95 Nasal Cannula 2 04/10/22 14:02 160/70 H 92 Room Air 04/10/22 12:08 95 Room Air 04/10/22 12:08 155/79 H 95 Room Air 04/10/22 12:08 Room Air 95 04/10/22 11:38 95 Room Air Pain Intensity Left Chest: Pain Intensity: 3 Abdomen: Pain Intensity: 2 Transfer of Care Handoff Completed per policy Notes Mental Status: alert / awake / arousable and participated in evaluation Patient Amnestic to Procedure: Yes Nausea / Vomiting: adequately controlled Pain: adequately controlled Airway Patency, RR, SpO2: stable & adequate BP & HR: stable & adequate Hydration State: stable & adequate Anesthetic Complications: no major complications apparent and Pt Satisfied with anesthetic care
[2022-04-11] MEDS: SODIUM CHLORIDE 0.9% 1000ML 1,000 ML IV SCH (12:54)
[2022-04-11] MEDS: ACETAMINOPHEN 1,000 MG/100 ML VIAL IV PRN (14:17)
[2022-04-11] MEDS: ONDANSETRON INJ 2 MG/ML 2 ML VIAL IV PRN (15:59)
[2022-04-11] MEDS ORDERED: EZETIMIBE/SIMVASTATIN 10/40MG 1 TAB TAB PO SCH (16:30)
[2022-04-11] MEDS: HYDROmorphone INJ 0.5 MG/0.5 ML SYR IV PRN ×2 (17:12→20:34)
[2022-04-11] MEDS: LIDOCAINE 5% 1 PATCH TD SCH (20:32)
[2022-04-11] MEDS: dilTIAZem ER 120 MG CAPCR PO SCH (20:33)
[2022-04-11] MEDS: dilTIAZem ER 180 MG CAPCR PO SCH (20:33)
--- NOTE | 2022-04-11 21:24 | Hospitalist Progress Note ---
Date of Service April 11, 2022 Assessment & Plan (1) Cholecystitis: Plan: acute/chronic. chronic state manifested by severe, copious adhesions around the gall bladder precluding cholecystectomy by way of laparoscope. Dr Ko from surgery had to convert the removal by way of open approach. Extensive BOLA performed. defer diet advancement, etc to Dr Ko. repeat LFTs in am. if LFTs rise would need to be checked for choledocholiathisis (MRCP). cont rocephin + flagyl IV. cont pain meds, IV fluids, etc. encouraged more incentive spirometry (2) S/P cholecystectomy: Plan: OPEN - by Dr Ko today (3) Cholelithiases: Plan: see #1 above LFTs in am (4) Hypertension: Plan: Continue diltiazem 300 mg at night HOLD olmesartan-HCTZ 20mg/12.5 mg for now Restart ARB and/or HCTZ if creatinine stable and BPs are high (5) Hyperlipidemia: Plan: HOLD Zetia/simvastatin for now follow serial LFTs (6) Hypothyroidism: Plan: Levothyroxine 50 mcg daily. TSH 01/2022 wnl (7) Lichen sclerosus et atrophicus: Plan: Continue topical creams as prescribed. (8) DVT prophylaxis: Plan: heparin 5000 BID ordered by gen surg but consider increase to TID dosing (9) Prediabetes: Plan: a1c just over 6% in January repeat a1c in am Plan updated at bedside Admission and Anticipated Discharge Date Admission Date: April 10, 2022 Subjective saw patient post-op from her open cholecystectomy was at bedside she was attempting to have some of her clear liquids some nausea post-op but no vomiting no chest pain no dyspnea no orthopnea she c/o abdominal pain denies prior episodes of biliary colic in the months leading up to this admission Review of Systems Review of Systems: gen - very tired cv - no chest pain pulm - no cough GI - ongoing abd pain but no vomiting Physical Exam Physical Exam: gen - comfortable, NAD, awake, alert mouth - MM pasty neck - no JVD heart - RRR, s1 s2 lungs - decreased BS bases, no wheeze, no rales abd - mildly distended, BS+ but decreased, large dressing intact RUQ, tender central abdomen; no peritoneal signs ext - no edema, pulses 2+ b/l Results & Data Results & [facility]) Vital Signs (Past 12 Hours) Vital Signs Temp Pulse Pulse Resp BP Pulse Ox O2 Del Method 04/11/22 19:15 37.2 C 73 16 124/80 93 Nasal Cannula 04/11/22 16:07 36.7 C 73 18 119/72 96 04/11/22 12:00 Nasal Cannula 04/11/22 14:45 37.1 C 72 18 101/65 93 Nasal Cannula 04/11/22 13:45 37.1 C 76 16 107/69 94 Nasal Cannula 04/11/22 12:45 36.8 C 66 18 128/78 94 Nasal Cannula 04/11/22 12:15 36.6 C 68 18 121/73 94 Nasal Cannula 04/11/22 11:45 37 C 69 18 143/77 H 94 Nasal Cannula 04/11/22 11:15 69 20 139/61 94 Nasal Cannula 04/11/22 10:55 36.6 C 72 23 159/83 H 92 Nasal Cannula 04/11/22 10:45 74 21 139/78 93 Nasal Cannula 04/11/22 10:35 78 18 151/78 H 91 Nasal Cannula 04/11/22 10:15 77 18 147/65 H 94 Oxymask 04/11/22 10:05 77 23 159/69 H 94 Oxymask 04/11/22 11:30 70 23 128/65 93 Nasal Cannula 04/11/22 11:05 70 23 146/84 H 93 Nasal Cannula 04/11/22 10:25 77 16 155/78 H 94 Oxymask O2 Flow Rate 04/11/22 19:15 4 04/11/22 16:07 04/11/22 12:00 3 04/11/22 14:45 3 04/11/22 13:45 3 04/11/22 12:45 4 04/11/22 12:15 4 04/11/22 11:45 4 04/11/22 11:15 4 04/11/22 10:55 4 04/11/22 10:45 4 04/11/22 10:35 4 04/11/22 10:15 6 04/11/22 10:05 6 04/11/22 11:30 4 04/11/22 11:05 4 04/11/22 10:25 6 Laboratory Results Laboratory Results - last 24 hr 04/11/22 04/11/22 07:25 07:25 WBC 10.39 RBC 4.24 Hgb 13.0 Hct 39.4 MCV 92.9 MCH 30.7 MCHC 33.0 RDW Std Deviation 47.9 H RDW Coeff of Cheo 14.0 Plt Count 182 MPV 8.3 L Immature Gran % (Auto) 0.4 Neut % (Auto) 72.3 Lymph % (Auto) 15.4 [place] % (Auto) 11.5 Eos % (Auto) 0.3 Baso % (Auto) 0.1 Neut # (Auto) 7.52 H Lymph # (Auto) 1.60 [place] # (Auto) 1.19 H Eos # (Auto) 0.03 Baso # (Auto) 0.01 Immature Gran # (Auto) 0.04 H Sodium 137 Potassium 3.5 Chloride 103 Carbon Dioxide 27 Anion Gap 7 BUN 12 Creatinine 0.64 Est Cr Clr Drug Dosing 80.2 Est GFR ( Amer) 102.6 Est GFR (Non-Af Amer) 88.5 BUN/Creatinine Ratio 18.8 Glucose 127 H Calcium 9.5 Total Bilirubin 0.5 AST 12 L ALT 16 Alkaline Phosphatase 35 Total Protein 6.2 Albumin 3.5 Globulin 2.7 Albumin/Globulin Ratio 1.3 PG Care Time/CCT Total # of Minutes Spent Total Time Spent with Patient: Total time spent is greater than 50% in coordination of care (as documented) at patient's floor/unit and/or counseling patient: Coding Level of Care Code 86385 Subseq Hosp Care Lvl 2 Diagnoses Cholecystitis K81.9 S/P cholecystectomy Z90.49 Cholelithiases K80.20 Hypertension I10 Hyperlipidemia E78.5 Hypothyroidism E03.9 Lichen sclerosus et atrophicus L90.0 DVT prophylaxis Z29.9 Prediabetes R73.03
[2022-04-12] MEDS: ACETAMINOPHEN 1,000 MG/100 ML VIAL IV PRN ×3 (01:58→17:47)
[2022-04-12] MEDS: SODIUM CHLORIDE 0.9% 1000ML 1,000 ML IV SCH (06:12)
[2022-04-12] MEDS: metroNIDAZOLE 500 MG/100 ML BAG IV SCH ×3 (06:14→21:04)
[2022-04-12] MEDS: TOBRAMYCIN/DEXAMETHASONE OPH OINT 3.5 GM TUBE OP SCH ×3 (06:16→23:08)
--- NOTE | 2022-04-12 07:03 | Surgery Progress Note ---
Date of Service April 12, 2022 Assessment & Plan (1) S/P cholecystectomy: Plan: Patient status post open cholecystectomy with drain placement She has severe chronic cholecystitis with adhesions She is apparently is hungry but does have some dizziness when she stands up Her drain is serous We will try regular diet Add Toradol Try to have her ambulate depending on her dizziness Admission and Anticipated Discharge Date Admission Date: April 10, 2022 Results & Data ([facility]) Vital Signs (Past 12 Hours) Vital Signs Temp Pulse Resp BP BP Pulse Ox O2 Del Method 04/12/22 02:00 37.9 C H 93 H 16 162/81 H 90 Nasal Cannula 04/11/22 19:15 37.2 C 73 16 124/80 93 Nasal Cannula O2 Flow Rate 04/12/22 02:00 4 04/11/22 19:15 4 PG Care Time/CCT Total # of Minutes Spent Total Time Spent with Patient: Total time spent is greater than 50% in coordination of care (as documented) at patient's floor/unit and/or counseling patient: Coding Level of Care Code None Diagnoses S/P cholecystectomy Z90.49
[2022-04-12 08:06] LABS: Basophils # (auto) 0.03 K/uL (0-0.2); Basophils % (auto) 0.3 %; Eosinophils # (auto) 0.02 K/uL (0-0.50); Eosinophils % (auto) 0.2 %; Hematocrit (blood only) 37.2 % (34.1-44.9); Hemoglobin 12.4 g/dl (12.0-16.0); Immature Granulocytes # (auto) 0.04 K/uL (0.00-0.02); Immature Granulocytes % (auto) 0.4 %; Lymphocytes # (auto) 0.85 K/uL (1.2-3.4); Lymphocytes % (auto) 7.5 %; Mean Corpuscular Hemoglobin 31.3 pg (25.0-34.0); Mean Corpuscular Hgb Conc 33.3 g/dL (32.0-36.0); Mean Corpuscular Volume 93.9 fL (80.0-100.0); Mean Platelet Volume 8.9 fL (9.4-12.3); Monocytes # (auto) 0.92 K/uL (0.24-0.82); Monocytes % (auto) 8.1 %; Neutrophils % (auto) 83.5 %; Platelet Count 211 K/uL (130-400); RDW Coefficient of Variation 13.8 % (11.5-14.5); RDW Standard Deviation 47.4 fL (36.4-46.3); Red Blood Count 3.96 M/uL (3.93-5.22); White Blood Count 11.36 K/ul (4.8-10.8)
[2022-04-12 08:37] LABS: Albumin Globulin Ratio 1.1 (0.9-2); Albumin Level 3.1 gm/dl (3.4-5.0); Bilirubin Direct 0.2 mg/dl (0-0.2); Bilirubin,Total 0.5 mg/dl (0.2-1.0); Creatinine Clr Calc Pharmacy 88.5 ml/min; Est GFR (Non-African American) 91.4 ml/min; Globulin 2.8 gm/dl (2.5-4.0); Magnesium 1.6 mg/dl (1.7-2.4); Potassium 3.6 mmol/L (3.5-5.1); Total Protein 5.9 gm/dl (6.0-8.3)
[2022-04-12] MEDS: TRIAMCINOLONE ACET 0.1% CR 15 GM TUBE TOP SCH ×2 (08:46→20:59)
[2022-04-12] MEDS: FAMOTIDINE 20 MG in SYRINGE 3 ML IV SCH (08:47)
[2022-04-12] MEDS: CHOLECALCIFEROL 1,000 UNITS 25 MCG TAB PO SCH (08:47)
[2022-04-12] MEDS: DICLOFENAC SOD 1% GEL 100 GM TUBE EXT SCH ×4 (08:49→20:57)
[2022-04-12] MEDS ORDERED: HEPARIN SOD 5,000 UNIT/0.5 ML VIAL SQ SCH (09:00)
[2022-04-12] MEDS: cefTRIAXone SODIUM 2,000 MG in DEXTROSE 5% 50 ML IV SCH (09:42)
[2022-04-12] MEDS: SENNOSIDES 8.8 MG/5 ML UDC PO SCH ×2 (09:45→20:59)
[2022-04-12] MEDS: HYDROCORTISONE ACETATE 25 MG SUPP PR SCH (09:46)
[2022-04-12] MEDS ORDERED: HYDROCODONE/ACETAMOPHEN 5/325MG TAB PO PRN (09:51)
[2022-04-12] MEDS ORDERED: MAGNESIUM SULFATE / D5W 1 GM/100 ML BAG IV ONE (10:11)
--- NOTE | 2022-04-12 10:44 | XRay Report ---
SINGLE VIEW CHEST CLINICAL HISTORY: Hypoxia. FINDINGS: An AP, portable, upright chest radiograph is compared to chest x-ray and chest CT dated 04/10. The heart is top normal for projection. There is prominence of the pulmonary vasculature. Ther e are large left pleural effusions with dependent consolidation. No pneumothorax is seen. The skeleta l structures are osteopenic. The bony thorax is grossly intact. Arthritic change is seen in the shoul ders. IMPRESSION: 1. There is prominence of the pulmonary vasculature. Correlate clinically for evidence of fluid overl oad/mild congestive change. 2. Right larger than left pleural effusions with dependent consolidation. Effusions have increased in size from 04/10/2022. ACT 112: Negative or not required by law. Electronically signed by: Chuck Drummond M.D. 04/12/2022 10:43 AM
[2022-04-12] MEDS ORDERED: FUROSEMIDE INJ 20 MG/2 ML VIAL IV ONE (10:49)
[2022-04-12 11:05] LABS: Estimated Average Glucose 128 mg/dl; Hemoglobin A1C 6.1 % (4.5-5.6)
[2022-04-12] MEDS ORDERED: Heparin IV Adult Wt-Based Low-Dose *NO* Bolus Protocol IV SCH (12:01)
--- NOTE | 2022-04-12 12:03 | Hospitalist Progress Note ---
Date of Service April 12, 2022 Assessment & Plan (1) Cholecystitis: Plan: acute/chronic. chronic state manifested by severe, copious adhesions around the gall bladder precluding cholecystectomy by way of laparoscope. Dr Ko from surgery had to convert the removal by way of open approach. Extensive BOLA performed. Surgery 04/11 LFTs remain normal -adv diet to regular today -bowel regimen as needed -if LFTs rise would need to be checked for choledocholiathisis (MRCP). -cont rocephin + flagyl IV. -cont pain meds -encouraged more incentive spirometry -dc IVFs and giving lasix as below Discussed care with Surgery (2) Hypoxia: Plan: requiring 6LNC now CXR with left pleural effusion and atelectasis CTA Chest from admission with addendum added 04/12 noting segmental and subsegmental bilat PEs without right heart strain-would not likely account for her hypoxia but may have thrown more PEs? Denies CP or SOB. 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--> suggest appropriate f/u with Urology as planned -d/w Surgery-ok to start low dose, no bolus heparin gtt now and plan to convert to Xarelto at time of discharge if no issues with post-op bleeding -check ECHO, BNP, troponin -check PT/PTT/INR now -follow CBC in AM -check bilat LEs Dopplers (4) S/P cholecystectomy: Plan: OPEN - by Dr Ko 04/11 (5) Cholelithiases: Plan: as above (6) Hypertension: Plan: Continue diltiazem 300 mg at night HOLD olmesartan-HCTZ 20mg/12.5 mg for now Restart ARB and/or HCTZ if creatinine stable and BPs are high (7) Hyperlipidemia: Plan: HOLD Zetia/simvastatin for now follow serial LFTs (8) Hypothyroidism: Plan: Levothyroxine 50 mcg daily. TSH 01/2022 wnl (9) Lichen sclerosus et atrophicus: Plan: Continue topical creams as prescribed. (10) Prediabetes: Plan: a1c just over 6% in January repeat A1C here 6.1%, follow as outpt Plan updated at bedside Dispo-continued stay Admission and Anticipated Discharge Date Admission Date: April 10, 2022 Subjective Pt starting to feel better, eating some solid food today. Denies SOB but is now requiring 6LNC to keep POx 91%. Denies CP. Is using her ICS but was making her feel dizzy so she stopped. No flatus or BM yet No recent calf pain or leg swelling. Was recently with a back pain issue and was sedentary for a few weeks. No recent car/plane rides, other surgeries, etc. Review of Systems Review of Systems: All systems reviewed & are unremarkable except as noted in HPI & below Physical Exam Constitutional: WD/WN, vitals as above Eyes: + anicteric sclerae ENMT: external ear and nose normal, oropharynx normal Neck: trachea midline, no thyromegaly Respiratory: normal respiratory effort, lungs clear to auscultation Cardiovascular: Rate/Rhythm: regular rate and regular rhythm Heart Sounds: + murmur (2/6 holosystolic murmur at apex) Vessels: dorsalis pedis pulses present Extremities: + edema (trace right leg edema,none on left); no calf tenderness Chest (Breasts): Chest: normal inspection of chest Gastrointestinal (Abdomen): Inspection/Auscultation: normal bowel sounds; + abdomen abnormal to inspection (ELIAS drain in place w/serosang fluid,dressing acro ss abd c/d/i) Percussion/Palpation: + abdomen tender (mild across incision site,no guarding or rebound) and abdomen soft Musculoskeletal: Extremities: extremities normal to inspection; no cyanosis and no clubbing Skin: no rashes, warm and dry Neurologic: moves all extremities and awake; no focal motor deficits Psychiatric: A+Ox3, euthymic affect Lymphatic: no lymphedema Results & Data Results & Data ([facility]) Vital Signs (Past 12 Hours) Vital Signs Temp Pulse Resp BP BP Pulse Ox O2 Del Method 04/12/22 11:47 37.0 C 65 16 152/74 H 90 Nasal Cannula 04/12/22 07:37 Nasal Cannula 04/12/22 07:24 36.3 C L 76 18 148/76 H 89 L Nasal Cannula 04/12/22 02:00 37.9 C H 93 H 16 162/81 H 90 Nasal Cannula O2 Flow Rate 04/12/22 11:47 5 04/12/22 07:37 6 04/12/22 07:24 6 04/12/22 02:00 4 Laboratory Results 04/12/22 04/12/22 04/12/22 Range/Units 07:18 07:18 07:18 WBC (4.8-10.8) K/ul RBC (3.93-5.22) M/uL Hgb (12.0-16.0) g/dl Hct (34.1-44.9) % MCV (80.0-100.0) fL MCH (25.0-34.0) pg MCHC (32.0-36.0) g/dL RDW Std Deviation (36.4-46.3) fL RDW Coeff of Cheo (11.5-14.5) % Plt Count (130-400) K/uL MPV (9.4-12.3) fL Immature Gran % (Auto) % Neut % (Auto) % Lymph % (Auto) % Cecil % (Auto) % Eos % (Auto) % Baso % (Auto) % Neut # (Auto) (1.4-6.5) K/uL Lymph # (Auto) (1.2-3.4) K/uL Cecil # (Auto) (0.24-0.82) K/uL Eos # (Auto) (0-0.50) K/uL Baso # (Auto) (0-0.2) K/uL Immature Gran # (Auto) (0.00-0.02) K/uL Sodium 136 (136-145) mmol/L Potassium 3.6 (3.5-5.1) mmol/L Chloride 101 (98-107) mmol/L Carbon Dioxide 26 (21-32) mmol/L Anion Gap 9 (3-11) BUN 11 (6-23) mg/dl Creatinine 0.58 L (0.6-1.2) mg/dl Est Cr Clr Drug Dosing 88.5 ml/min Est GFR ( Amer) 106.0 ml/min Est GFR (Non-Af Amer) 91.4 ml/min BUN/Creatinine Ratio 19.0 (10-20) Glucose 125 H (70-99(Fasting)) mg/dl Estimat Average Glucose 128 mg/dl Hemoglobin A1c 6.1 H (4.5-5.6) % Calcium 9.0 (8.5-10.1) mg/dl Phosphorus 3.1 3.0 (2.5-4.9) mg/dl Magnesium 1.6 L (1.7-2.4) mg/dl Total Bilirubin 0.5 (0.2-1.0) mg/dl Direct Bilirubin 0.2 (0-0.2) mg/dl AST 24 (13-39) U/L ALT 35 (7-52) U/L Alkaline Phosphatase 42 (34-104) U/L Total Protein 5.9 L (6.0-8.3) gm/dl Albumin 3.1 L (3.4-5.0) gm/dl Globulin 2.8 (2.5-4.0) gm/dl Albumin/Globulin Ratio 1.1 (0.9-2) 04/12/22 Range/Units 07:18 WBC 11.36 H (4.8-10.8) K/ul RBC 3.96 (3.93-5.22) M/uL Hgb 12.4 (12.0-16.0) g/dl Hct 37.2 (34.1-44.9) % MCV 93.9 (80.0-100.0) fL MCH 31.3 (25.0-34.0) pg MCHC 33.3 (32.0-36.0) g/dL RDW Std Deviation 47.4 H (36.4-46.3) fL RDW Coeff of Cheo 13.8 (11.5-14.5) % Plt Count 211 (130-400) K/uL MPV 8.9 L (9.4-12.3) fL Immature Gran % (Auto) 0.4 % Neut % (Auto) 83.5 % Lymph % (Auto) 7.5 % Cecil % (Auto) 8.1 % Eos % (Auto) 0.2 % Baso % (Auto) 0.3 % Neut # (Auto) 9.50 H (1.4-6.5) K/uL Lymph # (Auto) 0.85 L (1.2-3.4) K/uL Cecil # (Auto) 0.92 H (0.24-0.82) K/uL Eos # (Auto) 0.02 (0-0.50) K/uL Baso # (Auto) 0.03 (0-0.2) K/uL Immature Gran # (Auto) 0.04 H (0.00-0.02) K/uL Sodium (136-145) mmol/L Potassium (3.5-5.1) mmol/L Chloride (98-107) mmol/L Carbon Dioxide (21-32) mmol/L Anion Gap (3-11) BUN (6-23) mg/dl Creatinine (0.6-1.2) mg/dl Est Cr Clr Drug Dosing ml/min Est GFR ( Amer) ml/min Est GFR (Non-Af Amer) ml/min BUN/Creatinine Ratio (10-20) Glucose (70-99(Fasting)) mg/dl Estimat Average Glucose mg/dl Hemoglobin A1c (4.5-5.6) % Calcium (8.5-10.1) mg/dl Phosphorus (2.5-4.9) mg/dl Magnesium (1.7-2.4) mg/dl Total Bilirubin (0.2-1.0) mg/dl Direct Bilirubin (0-0.2) mg/dl AST (13-39) U/L ALT (7-52) U/L Alkaline Phosphatase (34-104) U/L Total Protein (6.0-8.3) gm/dl Albumin (3.4-5.0) gm/dl Globulin (2.5-4.0) gm/dl Albumin/Globulin Ratio (0.9-2) PG Care Time/CCT Total # of Minutes Spent Total Time Spent with Patient: Total time spent is greater than 50% in coordination of care (as documented) at patient's floor/unit and/or counseling patient: Coding Level of Care Code 04144 Subseq Hosp Care Lvl 3 Diagnoses Cholecystitis K81.9 Hypoxia R09.02 Pulmonary emboli I26.99 S/P cholecystectomy Z90.49 Cholelithiases K80.20 Hypertension I10 Hyperlipidemia E78.5 Hypothyroidism E03.9 Lichen sclerosus et atrophicus L90.0 Prediabetes R73.03
[2022-04-12 12:36] LABS: Partial Thromboplastin Ratio 1.1; Partial Thromboplastin Time 29.6 Seconds (21.0-31.0); Prothrombin Time 11.1 Seconds (9.0-12.0)
[2022-04-12] MEDS: HEPARIN SODIUM/DEXTROSE 25,000 UNITS/500 ML BAG IV SCH (13:00)
--- NOTE | 2022-04-12 14:00 | Ultrasound Report ---
ULTRASOUND BILATERAL LOWER EXTREMITY VENOUS CLINICAL HISTORY: Pulmonary emboli COMPARISON STUDY: No priors. TECHNIQUE: Real-time, grayscale, and color Doppler sonography of the deep veins of the right and left lower extremity was performed from the inguinal crease to the calf. Compression and augmentation wer e utilized. FINDINGS: Right lower extremity: There is no sonographic evidence of right lower extremity deep venous thrombos is. The common femoral, superficial femoral, and popliteal veins are patent and normally compressible . The greater saphenous vein and the profunda femoris vein at the junction with the common femoral ve in are clear. The visualized calf veins are patent. Left lower extremity: There is deep venous thrombosis in the calf and one of the posterior tibial vei ns. The remaining calf vessels are patent. The common femoral, superficial femoral, and popliteal vei ns are patent and normally compressible. The greater saphenous vein and the profunda femoris vein at the junction with the common femoral vein are clear. IMPRESSION: 1. There is deep venous thrombosis identified in the left calf as above. 2. There is no sonographic evidence of deep venous thrombosis in the right lower extremity. ACT 112: Negative or not required by law. Electronically signed by: Chuck Drummond M.D. 04/12/2022 1:58 PM
[2022-04-12 19:03] LABS: INR 1.1 (0.9-1.1); Prothrombin Time 11.4 Seconds (9.0-12.0)
[2022-04-12 20:24] LABS: Partial Thromboplastin Ratio 1.9
[2022-04-12 20:35] LABS: Partial Thromboplastin Time 51.5 Seconds (21.0-31.0)
[2022-04-12] MEDS: dilTIAZem ER 180 MG CAPCR PO SCH (20:57)
[2022-04-12] MEDS: dilTIAZem ER 120 MG CAPCR PO SCH (20:57)
[2022-04-12] MEDS: FAMOTIDINE 20 MG TAB PO SCH (20:58)
[2022-04-12] MEDS: LIDOCAINE 5% 1 PATCH TD SCH (20:59)
[2022-04-12] MEDS: KETOROLAC TROMETHAMINE 15 MG/ML VIAL IV PRN (21:00)
[2022-04-13] MEDS: metroNIDAZOLE 500 MG/100 ML BAG IV SCH ×3 (06:10→21:16)
--- NOTE | 2022-04-13 06:35 | Surgery Progress Note ---
Date of Service April 13, 2022 Assessment & Plan (1) S/P cholecystectomy: Plan: Open cholecystectomy Postop hypoxia with PE Gentle anticoagulation-may increase slowly to therapeutic levels with no bolus Patient is awake and alert this morning and up to the bathroom Drain is mostly serous Overall making good progress Would continue IV antibiotics for now Admission and Anticipated Discharge Date Admission Date: April 12, 2022 Results & Data ([facility]) Vital Signs (Past 12 Hours) Vital Signs Temp Pulse Resp BP Pulse Ox O2 Del Method O2 Flow Rate 04/12/22 20:52 37.4 C 76 18 161/90 H 92 Nasal Cannula 6 PG Care Time/CCT Total # of Minutes Spent Total Time Spent with Patient: Total time spent is greater than 50% in coordination of care (as documented) at patient's floor/unit and/or counseling patient: Coding Level of Care Code None Diagnoses S/P cholecystectomy Z90.49
[2022-04-13] MEDS: TOBRAMYCIN/DEXAMETHASONE OPH OINT 3.5 GM TUBE OP SCH ×3 (06:37→23:46)
[2022-04-13 08:03] LABS: Basophils # (auto) 0.02 K/uL (0-0.2); Basophils % (auto) 0.2 %; Eosinophils # (auto) 0.06 K/uL (0-0.50); Eosinophils % (auto) 0.6 %; Hematocrit (blood only) 34.2 % (34.1-44.9); Hemoglobin 11.7 g/dl (12.0-16.0); Immature Granulocytes # (auto) 0.06 K/uL (0.00-0.02); Immature Granulocytes % (auto) 0.6 %; Lymphocytes # (auto) 0.99 K/uL (1.2-3.4); Lymphocytes % (auto) 9.7 %; Mean Corpuscular Hgb Conc 34.2 g/dL (32.0-36.0); Mean Corpuscular Volume 90.5 fL (80.0-100.0); Mean Platelet Volume 8.5 fL (9.4-12.3); Monocytes # (auto) 0.97 K/uL (0.24-0.82); Monocytes % (auto) 9.5 %; Neutrophils # (auto) 8.09 K/uL (1.4-6.5); Neutrophils % (auto) 79.4 %; Platelet Count 210 K/uL (130-400); RDW Coefficient of Variation 13.6 % (11.5-14.5); RDW Standard Deviation 45.1 fL (36.4-46.3); Red Blood Count 3.78 M/uL (3.93-5.22); White Blood Count 10.19 K/ul (4.8-10.8)
[2022-04-13 08:25] LABS: BUN Creatinine Ratio 27.6 (10-20); Calcium 8.8 mg/dl (8.5-10.1); Creatinine Clr Calc Pharmacy 88.5 ml/min; Est GFR (Non-African American) 91.4 ml/min; Magnesium 1.9 mg/dl (1.7-2.4); Potassium 3.2 mmol/L (3.5-5.1)
[2022-04-13] MEDS: cefTRIAXone SODIUM 2,000 MG in DEXTROSE 5% 50 ML IV SCH (08:29)
[2022-04-13 08:34] LABS: Partial Thromboplastin Ratio 1.9
[2022-04-13] MEDS: DICLOFENAC SOD 1% GEL 100 GM TUBE EXT SCH ×4 (08:34→20:21)
[2022-04-13] MEDS: CHOLECALCIFEROL 1,000 UNITS 25 MCG TAB PO SCH (08:37)
[2022-04-13] MEDS: SENNOSIDES 8.8 MG/5 ML UDC PO SCH ×2 (08:38→20:27)
[2022-04-13] MEDS: TRIAMCINOLONE ACET 0.1% CR 15 GM TUBE TOP SCH ×2 (08:38→20:21)
[2022-04-13] MEDS: FAMOTIDINE 20 MG TAB PO SCH ×2 (08:39→20:27)
[2022-04-13 08:43] LABS: Partial Thromboplastin Time 52.8 Seconds (21.0-31.0)
[2022-04-13] MEDS ORDERED: FUROSEMIDE INJ 20 MG/2 ML VIAL IV SCH (09:00)
[2022-04-13] MEDS ORDERED: POTASSIUM CHLORIDE CRTAB 20 MEQ TABCR PO STA ×2 (10:09→15:55)
--- NOTE | 2022-04-13 10:40 | XCELERA ---
[id number]
[2022-04-13] MEDS: LEVOTHYROXINE SODIUM 50 MCG TABLET PO SCH (15:06)
[2022-04-13] MEDS: HYDROCORTISONE ACETATE 25 MG SUPP PR SCH (15:11)
[2022-04-13] MEDS ORDERED: FUROSEMIDE 40 MG/4 ML VIAL IV ONE (15:43)
--- NOTE | 2022-04-13 15:43 | Hospitalist Progress Note ---
Date of Service April 13, 2022 Assessment & Plan (1) Cholecystitis: Plan: acute/chronic. chronic state manifested by severe, copious adhesions around the gall bladder precluding cholecystectomy by way of laparoscope. Dr Ko from surgery had to convert the removal by way of open approach. Extensive BOLA performed. Surgery 04/11 LFTs remain normal -adv diet to regular and tolerating -bowel regimen as needed no BM yet -if LFTs rise would need to be checked for choledocholiathisis (MRCP). -cont rocephin + flagyl IV for now -cont pain meds as needed -encouraged incentive spirometry Discussed care with Surgery (2) Hypoxia: Plan: requiring 6LNC on postop day #1 secondary to volume overload CXR with left pleural effusion and atelectasis CTA Chest from admission with addendum added 04/12 noting segmental and subsegmental bilat PEs without right heart strain-would not likely account for her hypoxia but may have thrown more PEs since that CAT scan Denies CP or SOB. 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--> suggest appropriate f/u with Urology as planned-this is planned for June -/ Surgery-started low dose, no bolus heparin gtt and plan to convert to Xarelto on 04/14 as long as no evidence of bleeding-surgery prefers no loading dose-Will give Xarelto 20 Mg once daily with dinner starting 04/14 BNP normal, troponin mildly elevated and then trended downward likely due to to PE Hemoglobin only slightly lower than yesterday but remains at 11.7, no bloody drainage in ELIAS drain -follow CBC in AM Bilat LEs Dopplers do show acute DVT in the left calf and left posterior tibial vein -Recommend 3 months of anticoagulation total unless underlying malignancy found in follow-up with urology which is doubtful (4) Hypokalemia: Plan: Hypokalemia secondary to loop diuretic use Replace with 40 mEq potassium chloride p.o. twice daily Follow BMP in the morning (5) Acute DVT (deep venous thrombosis): Plan: Acute DVT L calf and L posterior tibial vein, likely POA As above (6) Cholelithiases: Plan: as above (7) Hypertension: Plan: Continue diltiazem 300 mg at night Continue to HOLD olmesartan-HCTZ 20mg/12.5 mg for now Restart ARB and/or HCTZ if creatinine stable and BPs are high (8) Hyperlipidemia: Plan: Continue to HOLD Zetia/simvastatin for now follow serial LFTs (9) Hypothyroidism: Plan: You levothyroxine 50 mcg daily. TSH 01/2022 wnl (10) Lichen sclerosus et atrophicus: Plan: Continue topical creams as prescribed. (11) Prediabetes: Plan: a1c just over 6% in January repeat A1C here 6.1%, follow as outpt (12) S/P cholecystectomy: Plan: OPEN - by Dr Ko 04/11 Plan updated at bedside Dispo-continued stay, but improving, likely discharged home in 1 to 2 days Admission and Anticipated Discharge Date Admission Date: April 12, 2022 Subjective Ports she is having "my best day yet." Denies shortness of breath or chest pains, minimal abdominal pains. No bowel movement yet but feels like she might hear soon. He is ambulating a bit more today. Remains on oxygen but is weaned on 4 L nasal cannula when I saw her. She reports she is not urinating as much this morning as she was yesterday. Discussed her care with general surgery Review of Systems Review of Systems: All systems reviewed & are unremarkable except as noted in HPI & below Physical Exam Constitutional: WD/WN, vitals as above Eyes: + anicteric sclerae Neck: trachea midline, no thyromegaly Respiratory: normal respiratory effort; no cough Auscultation: + diminished lung sounds (Left base but improved from yesterday); no crackles and no wheezes Cardiovascular: Rate/Rhythm: regular rate and regular rhythm Heart Sounds: + murmur (2/6 holosystolic murmur at apex) Vessels: dorsalis pedis pulses present Extremities: no calf tenderness and no edema Chest (Breasts): Chest: normal inspection of chest Gastrointestinal (Abdomen): Inspection/Auscultation: normal bowel sounds; + abdomen abnormal to inspection (ELIAS drain in place w/serosang fluid,dressing across abd c/d/i) Percussion/Palpation: + abdomen tender (Very mild across incision site,no guarding or rebound) and abdomen soft Musculoskeletal: Extremities: extremities normal to inspection; no cyanosis and no clubbing Skin: no rashes, warm and dry Neurologic: moves all extremities and awake; no focal motor deficits Psychiatric: A+Ox3, euthymic affect Lymphatic: no lymphedema Results & Data Results & Data ([facility]) Vital Signs (Past 12 Hours) Vital Signs Temp Pulse Resp BP Pulse Ox O2 Del Method O2 Flow Rate 04/13/22 15:08 36.9 C 72 18 135/78 91 Nasal Cannula 4 04/13/22 14:46 94 Nasal Cannula 4 04/13/22 07:20 Nasal Cannula 6 04/13/22 07:19 37 C 71 18 143/72 H 90 Nasal Cannula 6 04/13/22 06:38 Nasal Cannula 6 Laboratory Results 04/13/22 04/13/22 04/13/22 Range/Units 07:35 07:35 07:35 WBC 10.19 (4.8-10.8) K/ul RBC 3.78 L (3.93-5.22) M/uL Hgb 11.7 L (12.0-16.0) g/dl Hct 34.2 (34.1-44.9) % MCV 90.5 (80.0-100.0) fL MCH 31.0 (25.0-34.0) pg MCHC 34.2 (32.0-36.0) g/dL RDW Std Deviation 45.1 (36.4-46.3) fL RDW Coeff of Cheo 13.6 (11.5-14.5) % Plt Count 210 (130-400) K/uL MPV 8.5 L (9.4-12.3) fL Immature Gran % (Auto) 0.6 % Neut % (Auto) 79.4 % Lymph % (Auto) 9.7 % [place] % (Auto) 9.5 % Eos % (Auto) 0.6 % Baso % (Auto) 0.2 % Neut # (Auto) 8.09 H (1.4-6.5) K/uL Lymph # (Auto) 0.99 L (1.2-3.4) K/uL [place] # (Auto) 0.97 H (0.24-0.82) K/uL Eos # (Auto) 0.06 (0-0.50) K/uL Baso # (Auto) 0.02 (0-0.2) K/uL Immature Gran # (Auto) 0.06 H (0.00-0.02) K/uL APTT (21.0-31.0) Seconds PTT Ratio Sodium 135 L (136-145) mmol/L Potassium 3.2 L (3.5-5.1) mmol/L Chloride 100 (98-107) mmol/L Carbon Dioxide 30 (21-32) mmol/L Anion Gap 5 (3-11) BUN 16 (6-23) mg/dl Creatinine 0.58 L (0.6-1.2) mg/dl Est Cr Clr Drug Dosing 88.5 ml/min Est GFR ( Amer) 106.0 ml/min Est GFR (Non-Af Amer) 91.4 ml/min BUN/Creatinine Ratio 27.6 H (10-20) Glucose 119 H (70-99(Fasting)) mg/dl Calcium 8.8 (8.5-10.1) mg/dl Magnesium 1.9 (1.7-2.4) mg/dl Troponin I High Sens 21.7 H (0-14) pg/ml 04/13/22 Range/Units 07:35 WBC (4.8-10.8) K/ul RBC (3.93-5.22) M/uL Hgb (12.0-16.0) g/dl Hct (34.1-44.9) % MCV (80.0-100.0) fL MCH (25.0-34.0) pg MCHC (32.0-36.0) g/dL RDW Std Deviation (36.4-46.3) fL RDW Coeff of Cheo (11.5-14.5) % Plt Count (130-400) K/uL MPV (9.4-12.3) fL Immature Gran % (Auto) % Neut % (Auto) % Lymph % (Auto) % [place] % (Auto) % Eos % (Auto) % Baso % (Auto) % Neut # (Auto) (1.4-6.5) K/uL Lymph # (Auto) (1.2-3.4) K/uL [place] # (Auto) (0.24-0.82) K/uL Eos # (Auto) (0-0.50) K/uL Baso # (Auto) (0-0.2) K/uL Immature Gran # (Auto) (0.00-0.02) K/uL APTT 52.8 H* (21.0-31.0) Seconds PTT Ratio 1.9 Sodium (136-145) mmol/L Potassium (3.5-5.1) mmol/L Chloride (98-107) mmol/L Carbon Dioxide (21-32) mmol/L Anion Gap (3-11) BUN (6-23) mg/dl Creatinine (0.6-1.2) mg/dl Est Cr Clr Drug Dosing ml/min Est GFR ( Amer) ml/min Est GFR (Non-Af Amer) ml/min BUN/Creatinine Ratio (10-20) Glucose (70-99(Fasting)) mg/dl Calcium (8.5-10.1) mg/dl Magnesium (1.7-2.4) mg/dl Troponin I High Sens (0-14) pg/ml Diagnostic Findings Echocardiogram with mild aortic valve sclerosis, mildly elevated RVSP 30-40 mmHg PG Care Time/CCT Total # of Minutes Spent Total Time Spent with Patient: Total time spent is greater than 50% in coordination of care (as documented) at patient's floor/unit and/or counseling patient: Coding Level of Care Code 50822 Subseq Hosp Care Lvl 3 Diagnoses Cholecystitis K81.9 Hypoxia R09.02 Pulmonary emboli I26.99 Hypokalemia E87.6 Acute DVT (deep venous thrombosis) I82.409 Cholelithiases K80.20 Hypertension I10 Hyperlipidemia E78.5 Hypothyroidism E03.9 Lichen sclerosus et atrophicus L90.0 Prediabetes R73.03 S/P cholecystectomy Z90.49
[2022-04-13] MEDS: HEPARIN SODIUM/DEXTROSE 25,000 UNITS/500 ML BAG IV SCH (15:47)
[2022-04-13] MEDS: LIDOCAINE 5% 1 PATCH TD SCH (20:21)
[2022-04-13] MEDS: dilTIAZem ER 120 MG CAPCR PO SCH (20:27)
[2022-04-13] MEDS: dilTIAZem ER 180 MG CAPCR PO SCH (20:27)
[2022-04-13] MEDS: KETOROLAC TROMETHAMINE 15 MG/ML VIAL IV PRN (21:19)
[2022-04-14] MEDS: LEVOTHYROXINE SODIUM 50 MCG TABLET PO SCH (06:07)
[2022-04-14] MEDS: metroNIDAZOLE 500 MG/100 ML BAG IV SCH ×3 (06:07→22:08)
[2022-04-14 08:04] LABS: Basophils # (auto) 0.03 K/uL (0-0.2); Basophils % (auto) 0.4 %; Eosinophils # (auto) 0.14 K/uL (0-0.50); Eosinophils % (auto) 1.9 %; Hematocrit (blood only) 33.8 % (34.1-44.9); Hemoglobin 11.3 g/dl (12.0-16.0); Immature Granulocytes # (auto) 0.06 K/uL (0.00-0.02); Immature Granulocytes % (auto) 0.8 %; Lymphocytes % (auto) 19.3 %; Mean Corpuscular Hemoglobin 30.4 pg (25.0-34.0); Mean Corpuscular Hgb Conc 33.4 g/dL (32.0-36.0); Mean Corpuscular Volume 90.9 fL (80.0-100.0); Mean Platelet Volume 8.7 fL (9.4-12.3); Monocytes # (auto) 0.86 K/uL (0.24-0.82); Monocytes % (auto) 11.9 %; Neutrophils # (auto) 4.76 K/uL (1.4-6.5); Neutrophils % (auto) 65.7 %; Platelet Count 238 K/uL (130-400); RDW Coefficient of Variation 13.9 % (11.5-14.5); RDW Standard Deviation 46.5 fL (36.4-46.3); Red Blood Count 3.72 M/uL (3.93-5.22); White Blood Count 7.25 K/ul (4.8-10.8)
--- NOTE | 2022-04-14 08:17 | Surgery Progress Note ---
Date of Service April 14, 2022 Assessment & Plan (1) S/P cholecystectomy: Plan: Status post open cholecystectomy and diagnosis of PE Anticoagulation per medical team We will DC ELIAS drain and [place] drain Possible stable for discharge from surgical standpoint tomorrow Will not need antibiotics from my standpoint Admission and Anticipated Discharge Date Admission Date: April 12, 2022 Results & Data ([facility]) Vital Signs (Past 12 Hours) Vital Signs Temp Pulse Resp BP Pulse Ox O2 Del Method O2 Flow Rate 04/14/22 07:11 Nasal Cannula 4 04/14/22 07:04 36.9 C 67 18 135/73 92 Nasal Cannula 4 04/13/22 20:30 37.2 C 75 16 145/72 H 94 Nasal Cannula 4 PG Care Time/CCT Total # of Minutes Spent Total Time Spent with Patient: Total time spent is greater than 50% in coordination of care (as documented) at patient's floor/unit and/or counseling patient: Coding Level of Care Code None Diagnoses S/P cholecystectomy Z90.49
[2022-04-14 08:29] LABS: Partial Thromboplastin Ratio 1.9
[2022-04-14 08:31] LABS: Partial Thromboplastin Time 51.3 Seconds (21.0-31.0)
[2022-04-14 08:35] LABS: Albumin Globulin Ratio 1.1 (0.9-2); Albumin Level 2.9 gm/dl (3.4-5.0); BUN Creatinine Ratio 36.1 (10-20); Bilirubin,Total 0.4 mg/dl (0.2-1.0); Calcium 8.9 mg/dl (8.5-10.1); Creatinine Clr Calc Pharmacy 84.1 ml/min; Est GFR (African American) 104.2 ml/min; Est GFR (Non-African American) 89.9 ml/min; Globulin 2.7 gm/dl (2.5-4.0); Magnesium 1.9 mg/dl (1.7-2.4); Potassium 3.9 mmol/L (3.5-5.1); Total Protein 5.6 gm/dl (6.0-8.3)
[2022-04-14] MEDS: TRIAMCINOLONE ACET 0.1% CR 15 GM TUBE TOP SCH ×2 (08:40→19:26)
[2022-04-14] MEDS: DICLOFENAC SOD 1% GEL 100 GM TUBE EXT SCH ×4 (08:41→19:27)
[2022-04-14] MEDS: TOBRAMYCIN/DEXAMETHASONE OPH OINT 3.5 GM TUBE OP SCH ×3 (08:41→19:26)
[2022-04-14] MEDS: cefTRIAXone SODIUM 2,000 MG in DEXTROSE 5% 50 ML IV SCH (08:46)
[2022-04-14] MEDS: FAMOTIDINE 20 MG TAB PO SCH ×2 (08:47→19:28)
[2022-04-14] MEDS: SENNOSIDES 8.8 MG/5 ML UDC PO SCH ×2 (08:47→19:59)
[2022-04-14] MEDS: CHOLECALCIFEROL 1,000 UNITS 25 MCG TAB PO SCH (08:47)
[2022-04-14] MEDS ORDERED: FUROSEMIDE 40 MG/4 ML VIAL IV ONE (09:49)
[2022-04-14] MEDS ORDERED: POTASSIUM CHLORIDE CRTAB 20 MEQ TABCR PO STA (09:49)
--- NOTE | 2022-04-14 15:41 | Hospitalist Progress Note ---
Date of Service April 14, 2022 Assessment & Plan (1) Cholecystitis: Plan: acute/chronic. chronic state manifested by severe, copious adhesions around the gall bladder precluding cholecystectomy by way of laparoscope. Dr Ko from surgery had to convert the removal by way of open approach. Extensive BOLA performed. Surgery 04/11 LFTs remain normal Improving each day, less pain, passing flatus, ambulating, ELIAS and filiberto drains removed -continue regular diet -bowel regimen as needed- no BM yet -if LFTs rise would need to be checked for choledocholithiasis (MRCP) -cont rocephin + flagyl IV for now but will not need abx at discharge as per Surgery -cont pain meds as needed -encouraged incentive spirometry Discussed care with Surgery (2) Hypoxia: Plan: requiring 6LNC on postop day #1 secondary to volume overload CXR with left pleural effusion and atelectasis CTA Chest from admission with addendum added 04/12 noting segmental and subsegmental bilat PEs without right heart strain-would not likely account for her hypoxia but may have thrown more PEs since that CAT scan Denies CP or SOB. 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--> suggest appropriate f/u with Urology as planned-this is planned for June -/ Surgery-started low dose, no bolus heparin gtt BNP normal, troponin mildly elevated and then trended downward likely due to to PE Hemoglobin only slightly lower than preop but remains at 11.3, no bloody drainage in ELIAS drain and now drains removed -follow CBC in AM Bilat LEs Dopplers do show acute DVT in the left calf and left posterior tibial vein -Recommend 3 months of anticoagulation total unless underlying malignancy found in follow-up with urology which is doubtful -convert heparin gtt to Xarelto on 04/14 as no evidence of bleeding-surgery prefers no loading dose-Will give Xarelto 20 Mg once daily with dinner starting 04/14 (4) Hypokalemia: Plan: Hypokalemia secondary to loop diuretic use Replaced and improved, give another 40 meq today with IV lasix Follow BMP in the morning (5) Acute DVT (deep venous thrombosis): Plan: Acute DVT L calf and L posterior tibial vein, likely POA As above (6) Cholelithiases: Plan: as above (7) Hypertension: Plan: Continue diltiazem 300 mg at night Restart ARB and/or HCTZ as creatinine stable and BPs are midly elevated (8) Hyperlipidemia: Plan: Continue to HOLD Zetia/simvastatin for now-restart on discharge (9) Hypothyroidism: Plan: continue levothyroxine 50 mcg daily. TSH 01/2022 wnl (10) Lichen sclerosus et atrophicus: Plan: Continue topical creams as prescribed. (11) Prediabetes: Plan: a1c just over 6% in January repeat A1C here 6.1%, follow as outpt recommend low carb diet after discharge and increased exercise (12) S/P cholecystectomy: Plan: OPEN - by Dr Ko 04/11 Plan Dispo-continued stay, but improving, likely discharge tomorrow Admission and Anticipated Discharge Date Admission Date: April 12, 2022 Anticipated date of discharge: 04/15/22 Subjective Pt feeling even better today. Is weaned off O2, ambulating in the hallways, making plenty of urine. Passing flatus but no BM yet. Vance reg diet. Minimal abd pain. Denies SOB or CP. No bleeding from anywhere. Wonders if it's her fault that she got a blood clot from being "lazy" and wants to get more active after recovery from her GB surgery. Review of Systems Review of Systems: All systems reviewed & are unremarkable except as noted in HPI & below Physical Exam Constitutional: WD/WN, vitals as above Eyes: + anicteric sclerae Neck: trachea midline, no thyromegaly Respiratory: normal respiratory effort; no cough Auscultation: + diminished lung sounds (Left base but improved from yesterday); no crackles and no wheezes Cardiovascular: Rate/Rhythm: regular rate and regular rhythm Heart Sounds: + murmur (2/6 holosystolic murmur at apex) Extremities: no calf tenderness and no edema Chest (Breasts): Chest: normal inspection of chest Gastrointestinal (Abdomen): Inspection/Auscultation: normal bowel sounds; + abdomen abnormal to inspection (dressing across abd c/d/i) Percussion/Palpation: abdomen soft; abdomen nontender Musculoskeletal: Extremities: extremities normal to inspection; no cyanosis and no clubbing Skin: no rashes, warm and dry Neurologic: moves all extremities and awake; no focal motor deficits Psychiatric: A+Ox3, euthymic affect Lymphatic: no lymphedema Results & Data Results & Data ([facility]) Vital Signs (Past 12 Hours) Vital Signs Temp Pulse Resp BP Pulse Ox O2 Del Method O2 Flow Rate 04/14/22 14:50 37.4 C 71 16 148/71 H 90 Room Air 04/14/22 10:18 92 Room Air 04/14/22 10:31 91 Room Air 04/14/22 07:11 Nasal Cannula 4 04/14/22 07:04 36.9 C 67 18 135/73 92 Nasal Cannula 4 Laboratory Results 04/14/22 04/14/22 04/14/22 Range/Units 07:16 07:16 07:16 WBC 7.25 (4.8-10.8) K/ul RBC 3.72 L (3.93-5.22) M/uL Hgb 11.3 L (12.0-16.0) g/dl Hct 33.8 L (34.1-44.9) % MCV 90.9 (80.0-100.0) fL MCH 30.4 (25.0-34.0) pg MCHC 33.4 (32.0-36.0) g/dL RDW Std Deviation 46.5 H (36.4-46.3) fL RDW Coeff of Cheo 13.9 (11.5-14.5) % Plt Count 238 (130-400) K/uL MPV 8.7 L (9.4-12.3) fL Immature Gran % (Auto) 0.8 % Neut % (Auto) 65.7 % Lymph % (Auto) 19.3 % [place] % (Auto) 11.9 % Eos % (Auto) 1.9 % Baso % (Auto) 0.4 % Neut # (Auto) 4.76 (1.4-6.5) K/uL Lymph # (Auto) 1.40 (1.2-3.4) K/uL [place] # (Auto) 0.86 H (0.24-0.82) K/uL Eos # (Auto) 0.14 (0-0.50) K/uL Baso # (Auto) 0.03 (0-0.2) K/uL Immature Gran # (Auto) 0.06 H (0.00-0.02) K/uL APTT 51.3 H* (21.0-31.0) Seconds PTT Ratio 1.9 Sodium 138 (136-145) mmol/L Potassium 3.9 D (3.5-5.1) mmol/L Chloride 104 (98-107) mmol/L Carbon Dioxide 28 (21-32) mmol/L Anion Gap 6 (3-11) BUN 22 (6-23) mg/dl Creatinine 0.61 (0.6-1.2) mg/dl Est Cr Clr Drug Dosing 84.1 ml/min Est GFR ( Amer) 104.2 ml/min Est GFR (Non-Af Amer) 89.9 ml/min BUN/Creatinine Ratio 36.1 H (10-20) Glucose 106 H (70-99(Fasting)) mg/dl Calcium 8.9 (8.5-10.1) mg/dl Magnesium 1.9 (1.7-2.4) mg/dl Total Bilirubin 0.4 (0.2-1.0) mg/dl AST 16 (13-39) U/L ALT 22 (7-52) U/L Alkaline Phosphatase 38 (34-104) U/L Total Protein 5.6 L (6.0-8.3) gm/dl Albumin 2.9 L (3.4-5.0) gm/dl Globulin 2.7 (2.5-4.0) gm/dl Albumin/Globulin Ratio 1.1 (0.9-2) PG Care Time/CCT Total # of Minutes Spent Total Time Spent with Patient: Total time spent is greater than 50% in coordination of care (as documented) at patient's floor/unit and/or counseling patient: Coding Level of Care Code 04356 Subseq Hosp Care Lvl 2 Diagnoses Cholecystitis K81.9 Hypoxia R09.02 Pulmonary emboli I26.99 Hypokalemia E87.6 Acute DVT (deep venous thrombosis) I82.409 Cholelithiases K80.20 Hypertension I10 Hyperlipidemia E78.5 Hypothyroidism E03.9 Lichen sclerosus et atrophicus L90.0 Prediabetes R73.03 S/P cholecystectomy Z90.49
[2022-04-14] MEDS ORDERED: RIVAROXABAN 20 MG TAB PO SCH (16:30)
[2022-04-14] MEDS: HYDROCORTISONE ACETATE 25 MG SUPP PR SCH (16:43)
[2022-04-14] MEDS: HEPARIN SODIUM/DEXTROSE 25,000 UNITS/500 ML BAG IV SCH (17:47)
[2022-04-14] MEDS: LIDOCAINE 5% 1 PATCH TD SCH (19:26)
[2022-04-14] MEDS: dilTIAZem ER 120 MG CAPCR PO SCH (19:27)
[2022-04-14] MEDS: dilTIAZem ER 180 MG CAPCR PO SCH (19:27)
[2022-04-15] MEDS: ONDANSETRON INJ 2 MG/ML 2 ML VIAL IV PRN (06:25)
[2022-04-15] MEDS: metroNIDAZOLE 500 MG/100 ML BAG IV SCH (06:37)
[2022-04-15] MEDS: LEVOTHYROXINE SODIUM 50 MCG TABLET PO SCH (06:37)
[2022-04-15 07:03] LABS: Basophils # (auto) 0.04 K/uL (0-0.2); Basophils % (auto) 0.5 %; Eosinophils % (auto) 1.2 %; Hemoglobin 12.4 g/dl (12.0-16.0); Immature Granulocytes # (auto) 0.17 K/uL (0.00-0.02); Immature Granulocytes % (auto) 2.1 %; Lymphocytes # (auto) 1.91 K/uL (1.2-3.4); Lymphocytes % (auto) 23.8 %; Mean Corpuscular Hemoglobin 31.1 pg (25.0-34.0); Mean Corpuscular Hgb Conc 34.4 g/dL (32.0-36.0); Mean Corpuscular Volume 90.2 fL (80.0-100.0); Monocytes # (auto) 0.92 K/uL (0.24-0.82); Monocytes % (auto) 11.5 %; Neutrophils # (auto) 4.88 K/uL (1.4-6.5); Neutrophils % (auto) 60.9 %; Platelet Count 269 K/uL (130-400); RDW Standard Deviation 46.5 fL (36.4-46.3); Red Blood Count 3.99 M/uL (3.93-5.22); White Blood Count 8.02 K/ul (4.8-10.8)
[2022-04-15 07:29] LABS: BUN Creatinine Ratio 31.8 (10-20); Calcium 9.6 mg/dl (8.5-10.1); Creatinine Clr Calc Pharmacy 77.7 ml/min; Est GFR (African American) 101.6 ml/min; Est GFR (Non-African American) 87.6 ml/min
[2022-04-15] MEDS: TOBRAMYCIN/DEXAMETHASONE OPH OINT 3.5 GM TUBE OP SCH (07:58)
[2022-04-15] MEDS: TRIAMCINOLONE ACET 0.1% CR 15 GM TUBE TOP SCH (07:59)
[2022-04-15] MEDS: cefTRIAXone SODIUM 2,000 MG in DEXTROSE 5% 50 ML IV SCH (08:02)
[2022-04-15] MEDS: DICLOFENAC SOD 1% GEL 100 GM TUBE EXT SCH (08:07)
[2022-04-15] MEDS: FAMOTIDINE 20 MG TAB PO SCH (08:08)
[2022-04-15] MEDS ORDERED: hydroCHLOROthiazide 25 MG TAB PO SCH (09:00)
[2022-04-15] MEDS ORDERED: OLMESARTAN MEDOXOMIL 20 MG TAB PO SCH (09:00)
--- NOTE | 2022-04-15 11:07 | Discharge Summary ---
Date of Service April 15, 2022 Admission HPI Per Admitting Provider lAiya Obando a 72-year-old female with a past medical history significant for hypothyroidism, and hyperlipidemia and anxiety who presents today with right rib pain. Last night she experienced right rib pain underneath her breast that was worse with breathing and it has worsened since then. Is persistent and takes her breath away, does not radiate elsewhere, not associated with any nausea, vomiting, diarrhea, pale stools, or constipation. Has not noticed any fevers or had chills at home. Upon presentation to ED, she is mildly hypertensive, otherwise vital signs are within normal limits and stable. Her O2 did drop to 90% on room air, now she is on 2 L NC w/ SpO2 @ 95%. Labs significant for leukocytosis WBC 14.22, low potassium 3.3, glucose mildly elevated at 144. Otherwise labs within normal limits, no other electrolyte abnormalities, renal or liver function acceptable at baseline. Her lipase and LFTs are within normal limits. She is COVID- negative. Her troponin is 7.3. CXR is without evidence of acute chest disease, chest CTA does not show evidence for pulmonary embolus, there are linear densities in the bilateral lower lungs likely atelectasis versus underlying scarring. CT A/P shows a large gallstone in the dependent portion of the gallbladder without any wall thickening or pericholecystic fluid. There is no intra or extrahepatic biliary ductal dilation. GB U/S shows distended gallbladder without evidence of acute cholecystitis, prominent gallstone is noted, wall measuring 0.3 cm in diam diameter. Common duct measures 0.4 cm in diameter. Pancreas appears normal. Cystic area of the left lobe of the liver measuring 2.3 x 3.6 x 3.0 cm Principal Diagnosis Cholecystitis, DVT/PE, Acute hypoxic respiratory failure from volume overload Discharge Exam Constitutional WD/WN, vitals as above Eyes + anicteric sclerae Neck trachea midline, no thyromegaly Respiratory normal respiratory effort, lungs clear to auscultation normal respiratory effort; no cough Auscultation: + diminished lung sounds (Left base but improved from yesterday); no crackles and no wheezes Cardiovascular RRR, no murmur, no edema Extremities: no calf tenderness and no edema Chest (Breasts) Chest: normal inspection of chest Gastrointestinal (Abdomen) Inspection/Auscultation: normal bowel sounds; + abdomen abnormal to inspection (dressing across abd c/d/i) Percussion/Palpation: abdomen soft; abdomen nontender Musculoskeletal Extremities: extremities normal to inspection; no cyanosis and no clubbing Skin no rashes, warm and dry Neurologic moves all extremities and awake; no focal motor deficits Psychiatric A+Ox3, euthymic affect Lymphatic no lymphedema Discharge Data Allergies Allergy/AdvReac Type Severity Reaction Status Date / Time lorazepam AdvReac Unknown CAN'T Verified 04/10/22 16:18 REMEMBER methylprednisolone AdvReac Unknown CAN'T Verified 04/10/22 16:18 [From Medrol] REMEMBER Consultations 04/10/22 18:59 ED Decision to Admit Stat 04/10/22 22:22 Consult General Surgery Routine Procedures Performed Operation Date: 04/11/22 07:30 Actual Procedures p Open Cholecystectomy(Not Applicable) - Paulo Ko MD, FACS s Laparoscopic Evaluation(Not Applicable) - Paulo Ko MD, FACS Ordered Studies 04/10/22 12:26 CT abd pelvis IV con only Stat CT angio chest PE protocol Stat 04/10/22 14:15 US gallbladder Stat 04/12/22 11:46 US venous doppler LE BI Urgent ECHO Hospital Course (1) Cholecystitis: acute/chronic. chronic state manifested by severe, copious adhesions around the gall bladder precluding cholecystectomy by way of laparoscope. Dr Ko from surgery had to convert the removal by way of open approach. Extensive BOLA performed. 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--> no further eval or surveillance needed -continue regular diet -bowel regimen as needed- no BM yet-she will take laxatives at home -received rocephin + flagyl IV while admitted but will not need abx at discharge as per Surgery -cont pain meds as needed at home-tylenol, hydrocodone to be called in by Surgeon -encouraged incentive spirometry at home Discussed care with Surgery at bedside (2) Hypoxia: requiring 6LNC on postop day #1 secondary to volume overload CXR with left pleural effusion and atelectasis CTA Chest from admission with addendum added 04/12 noting segmental and subsegmental bilat PEs without right heart strain-would not likely account for her hypoxia but may have thrown more PEs since that CAT scan Denies CP or SOB. 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--> suggest appropriate f/u with Urology as planned-this is planned for June -/ Surgery-started low dose, no bolus heparin gtt BNP normal, troponin mildly elevated and then trended downward likely due to to PE Hemoglobin only slightly lower than preop but remains at 12, no bloody drainage in ELIAS drain and now drains removed Bilat LEs Dopplers do show acute DVT in the left calf and left posterior tibial vein -Recommend 3 months of anticoagulation total unless underlying malignancy found in follow-up with urology which is doubtful -converted heparin gtt to Xarelto on 04/14 as no evidence of bleeding-surgery prefers no loading dose-Will give Xarelto 20 Mg once daily with dinner starting 04/14 f/u with PCP (4) Hypokalemia: Hypokalemia secondary to loop diuretic use Replaced and improved (5) Acute DVT (deep venous thrombosis): Acute DVT L calf and L posterior tibial vein, likely POA As above (6) Cholelithiases: as above (7) Hypertension: Continue diltiazem 300 mg at night continue ARB/ HCTZ (8) Hyperlipidemia: restart home Zetia/simvastatin on discharge (9) Hypothyroidism: continue levothyroxine 50 mcg daily. TSH 01/2022 wnl (10) Lichen sclerosus et atrophicus: Continue topical creams as prescribed. (11) Prediabetes: a1c just over 6% in January repeat A1C here 6.1%, follow as outpt recommend low carb diet after discharge and increased exercise (12) S/P cholecystectomy: OPEN - by Dr Ko 04/11 Plan Dispo-dc to home Total Time Total Time Spent Total Time Spent (In Minutes): 40 min Total Time Includes: Examination of the Patient, Discharge Planning, Medication Reconciliation and Communication With Other Providers (Surgeon) Discharge Plan Discharge Items Patient Disposition: Home - Self-Care Reason For Visit: SYMPTOMATIC CHOLELITHIASIS Discharge Diagnosis: open cholecystectomy, acute on chronic cholecystitis, hypoxemia from fluid overload, DVT and Pulmonary embolism Condition on Discharge: Good Activity: Per Instructions section Lifting: No more than 10 pounds Lifting Comment: light activity for 4 weeks Bathing Comment: may shower; no soaking in tubs/pools Sexual Activity: When tolerated Exercise/Sports: Wait until after follow-up appointment Exercise Comment: wait 4 weeks Driving/Machine Use: no driving while taking any narcotics for pain Non-emergency contact: Primary Care Provider and Surgeon Call non-emergency contact if: you have any medication questions, your pain is worsening, your pain is unusual for you, your pain is concerning for you, you have a fever, your temperature is above 101.5, your wound has increased redness, your wound has increased drainage and your wound pain has increased Follow-up/Referrals: Paulo Ko MD, FACS [Physician] - Lori Canchola MD [Primary Care Provider] - (Please follow up within 1 week.) Diet: Carb Consistent or DM2 and Low Fat Addtl Attending Provider Instructions: SPECIAL CARE INSTRUCTIONS: * Cover incisions and change daily for comfort/drainage. * Empty drain 2-3 times per day and record. * May use ibuprofen for pain as tolerated. * Expect some swelling and bruising. Call your doctor if: * Temperature above 101 degrees * Pain not relieved by pain medicine ordered * There is increased drainage or redness from any incision * You have any unanswered questions or concerns [phone]. FOLLOW UP VISIT: If not already scheduled, please call the office for a follow-up visit. OFFICE PHONE NUMBER: Dr. Ko Office Addtl Student Financial Services Counselor Provider Instructions: You were admitted for a gallbladder attack and had your gallbladder removed. You were also found to have a blood clot in your left leg and in your lungs. You were started on a blood thinner called Xarelto for this which should be taken every evening with dinner. Your PCP will help determine when it is safe for you to STOP taking Xarelto, but generally it is recommended for at least 3 months. The blood clot was probably caused by being sedentary from your recent back pain as well as the inflammation from your gallbladder. Please make sure you keep your follow up visit with Urology in June as planned for your bladder polyp issue as well. Your gallbladder did have some precancerous changes to it but NOT CANCER. So fortunately, it has been removed from your body and there is no further evaluation you need. If you have any issues with bleeding as we discussed, please call your doctor or return to the ER. Pending Studies at Discharge: No Stand-Alone Forms: My [facility], Smoking Cessation Medications and DC Order Prescriptions: New Xarelto 20 mg Tablet 20 mg PO QDD Qty: 30 0RF Continued TobraDex 0.3-0.1 % ointment 1 applic OP Q8H Qty: 3.5 1RF triamcinolone acetonide 0.1 % cream 1 applic topical BID Qty: 80 3RF olmesartan-hydrochlorothiazide 20-12.5 mg tablet 1 tab PO QAM Qty: 90 3RF diltiazem HCl [Taztia XT] 300 mg capsule,extended release 24 hr 300 mg PO HS Qty: 30 5RF ezetimibe-simvastatin 10-40 mg tablet 1 tab PO QDD Qty: 30 5RF levothyroxine 50 mcg tablet 50 mcg PO DAILY Qty: 30 1RF hydrocortisone acetate [Anucort-HC] 25 mg suppository 25 mg UT DAILY Qty: 24 5RF pantoprazole 40 mg tablet,delayed release (DR/EC) 40 mg PO DAILY Qty: 90 3RF clobetasol 0.05 % cream 1 applic TOPICAL 2XWK Qty: 30 1RF oxybutynin chloride 5 mg tablet extended release 24hr 5 mg PO DAILY Qty: 30 11RF diclofenac sodium 1 % gel 2 g topical QID Qty: 100 2RF Rx Instructions: apply to single elbow, wrist or hand; for hand includes palm/fingers/back of hand cholecalciferol (vitamin D3) [Vitamin D3] 2,000 unit Capsule 2,000 unit PO DAILY Discharge Orders: Discharge Order (Routine); Ordered 04/15/22 Ordered By: Christal Jean/Other Patient Handouts: Prediabetes, 5 Steps for Eating Healthier Admission Data Admit Date/Time: 04/12/22 12:25 Attending Provider: Christal Sullivan Admit Provider: Arturo Ayala Primary Care Provider: Lori Canchola V. Other Providers: Arturo Ayala ; Paulo Ko Coding Level of Care Code D/C DAY MANAGEMENT >30 MINS Diagnoses Cholecystitis K81.9 Hypoxia R09.02 Pulmonary emboli I26.99 Hypokalemia E87.6 Acute DVT (deep venous thrombosis) I82.409 Cholelithiases K80.20 Hypertension I10 Hyperlipidemia E78.5 Hypothyroidism E03.9 Lichen sclerosus et atrophicus L90.0 Prediabetes R73.03 S/P cholecystectomy Z90.49
--- NOTE | 2022-04-15 11:21 | Surgery Progress Note ---
Date of Service April 15, 2022 Assessment & Plan (1) S/P cholecystectomy: Plan: Patient required open cholecystectomy for very severe adhesions Experience PE-on anticoagulation Seems to be tolerating her diet Her pathology did show some dysplasia of her mucosa however no invasive cancer No further surgical treatment necessary Discharge home today if possible Hydrocodone written for Follow-up in the office-no antibiotics necessary Admission and Anticipated Discharge Date Admission Date: April 12, 2022 Results & Data ([facility]) Vital Signs (Past 12 Hours) Vital Signs Temp Pulse Resp BP Pulse Ox O2 Del Method 04/15/22 08:16 Room Air 04/15/22 07:55 37.2 C 71 16 155/77 H 91 04/15/22 00:57 Room Air PG Care Time/CCT Total # of Minutes Spent Total Time Spent with Patient: Total time spent is greater than 50% in coordination of care (as documented) at patient's floor/unit and/or counseling patient: Coding Level of Care Code None Diagnoses S/P cholecystectomy Z90.49
[2022-04-15] MEDS: SENNOSIDES 8.8 MG/5 ML UDC PO SCH (12:22)
[2022-04-15] MEDS: CHOLECALCIFEROL 1,000 UNITS 25 MCG TAB PO SCH (12:23)
[2022-04-15] MEDS: HYDROCORTISONE ACETATE 25 MG SUPP PR SCH (12:24)
[2022-04-18] MEDS ORDERED: CLOBETASOL PROPIONATE 0.05% OINT 15 GM TUBE EXT SCH (09:00)
== END 2022-04-15 13:58 | disposition home or self-care (01) | DRG 414 ==
LOC: 3N 11:35 → ED 11:35 → SUATTDRO 19:08 → 3N 22:01
PROC: M.CHOLE (2022-04-11 07:30)